=== PATIENT | female | born 1995 | race Caucasian/White ===

== ENCOUNTER 2016-10-08 04:50 | Emergency (ER) | payer MEDICAID, OTHER ==
[~2016-10-08] VITALS: Ht 167.6 cm; Wt 40.8 kg
[2016-10-08] MEDS ORDERED: FAMOTIDINE 20 MG/2 ML ONE (05:28)
[2016-10-08] MEDS ORDERED: ONDANSETRON 2MG/ML, 2ML ONE (05:28)
[2016-10-08] MEDS ORDERED: SODIUM CHLORIDE FLUSH 10ML SYR IVF ONE (05:30)
[2016-10-08] MEDS ORDERED: FAMOTIDINE 20 MG/2 ML IVP ONE (05:30)
[2016-10-08] MEDS ORDERED: SODIUM CHLORIDE 0.9% 1,000ML IVBOLUS ONE ×2 (05:30→08:30)
[2016-10-08] MEDS ORDERED: ONDANSETRON 2MG/ML, 2ML IVPush ONE (05:30)
[2016-10-08 06:06] LABS: ASPARTATE AMINO TRANSFERASE 246 U/L (15-37); BLOOD UREA NITROGEN 6 mg/dL (7-18)
[2016-10-08] MEDS ORDERED: KETOROLAC 30 MG/1 ML ONE (08:16)
[2016-10-08] MEDS ORDERED: MORPHINE SULFATE 4 MG/ML, 1ML ONE (08:27)
[2016-10-08] MEDS ORDERED: THIAMINE 200 MG in SODIUM CHLORIDE 0.9% 50 ML IV ONE (08:30)
[2016-10-08] MEDS ORDERED: FOLIC ACID 1 MG in DEXTROSE 5% 50 ML IV SCH (08:30)
[2016-10-08] MEDS ORDERED: KETOROLAC 30 MG/1 ML IVPush ONE (08:30)
[2016-10-08] MEDS ORDERED: MORPHINE SULFATE 4 MG/ML, 1ML IVPush ONE (09:00)
[2016-10-08] MEDS ORDERED: morphine SULFATE 10 MG/ML, 1ML IVPush ONE (09:00)
[2016-10-08 09:30] VITALS: BP 99/54
== END 2016-10-08 10:37 | disposition home or self-care (01) ==
LOC: ED 05:13
DX: K29.20 Alcoholic gastritis without bleeding (principal); E86.0 Dehydration; R11.2 Nausea with vomiting, unspecified; R10.84 Generalized abdominal pain
CPT/HCPCS: 36415; 76700; 80053; 81001; 83690; 84703; 85025; 87086; 96361; 96365; 96375; 99285; J1885; J2270; J2405; J3411; J7030; S0028

== ENCOUNTER 2016-10-19 17:54 | Emergency (ER) | payer MEDICAID ==
[~2016-10-19] VITALS: Ht 167.6 cm; Wt 45.8 kg
[2016-10-19] MEDS ORDERED: SODIUM CHLORIDE 0.9% 1,000 ML IV ONE (18:12)
[2016-10-19] MEDS ORDERED: HYDROmorphone 1 MG/ML, 1ML ONE (18:14)
[2016-10-19] MEDS ORDERED: ONDANSETRON 2MG/ML, 2ML ONE (18:14)
[2016-10-19] MEDS ORDERED: SODIUM CHLORIDE 0.9% 1,000ML IVBOLUS ONE (18:30)
[2016-10-19] MEDS ORDERED: HYDROmorphone 1 MG/ML, 1ML IVPush PRN (18:30)
[2016-10-19] MEDS ORDERED: ONDANSETRON 2MG/ML, 2ML IVPush ONE (18:30)
[2016-10-19] MEDS ORDERED: SODIUM CHLORIDE FLUSH 10ML SYR IVF ONE (18:30)
[2016-10-19 18:55] LABS: ASPARTATE AMINO TRANSFERASE 286 U/L (15-37); BLOOD UREA NITROGEN 8 mg/dL (7-18)
[2016-10-19 21:10] VITALS: BP 119/74
== END 2016-10-19 21:08 | disposition home or self-care (01) ==
LOC: ED 21:02
DX: K70.0 Alcoholic fatty liver (principal); R74.8 Abnormal levels of other serum enzymes; R11.2 Nausea with vomiting, unspecified; Z88.8 Allergy status to other drugs, medicaments and biological substances
CPT/HCPCS: 36415; 76700; 80053; 81001; 83690; 84703; 85025; 87081; 87086; 87880; 96361; 96374; 96375; 99285; J1170; J2405; J7030

== ENCOUNTER 2016-12-19 16:56 | Inpatient (IN) | payer MEDICAID ==
[~2016-12-19] VITALS: Ht 167.6 cm; Wt 45.8 kg
[2016-12-19] MEDS ORDERED: SODIUM CHLORIDE 0.9% 1,000ML IVBOLUS ONE ×2 (17:30→19:00)
[2016-12-19] MEDS ORDERED: SODIUM CHLORIDE FLUSH 10ML SYR IVF ONE (17:30)
[2016-12-19] MEDS ORDERED: ONDANSETRON 2MG/ML, 2ML IVPush ONE (17:30)
[2016-12-19] MEDS ORDERED: ONDANSETRON 2MG/ML, 2ML ONE ×2 (17:40→17:48)
[2016-12-19 18:09] LABS: BLOOD UREA NITROGEN 8 mg/dL (7-18)
[2016-12-19 18:14] LABS: ASPARTATE AMINO TRANSFERASE 342 U/L (15-37)
[2016-12-19] MEDS ORDERED: METOCLOPRAMIDE 5 MG/ML, 2ML ONE (18:38)
[2016-12-19] MEDS ORDERED: METOCLOPRAMIDE 5 MG/ML, 2ML IVPush ONE (19:00)
[2016-12-19 20:20] LABS: BLOOD UREA NITROGEN 6 mg/dL (7-18)
[2016-12-19] MEDS ORDERED: MAGNESIUM SULFATE 1 GM, THIAMINE 100 MG, FOLIC ACID 1 MG, MVI ADULT 10 ML in SODIUM CHL... IV ONE (20:30)
[2016-12-19] MEDS ORDERED: DEXTROSE 50%, 50ML VIAL ONE (20:43)
[2016-12-19] MEDS ORDERED: [UNRECOGNIZED DRUG - OTHER] IV ONE (20:50)
[2016-12-19] MEDS ORDERED: MAGNESIUM SULFATE IV ONE (20:50)
[2016-12-19] MEDS ORDERED: THIAMINE IV ONE (20:50)
[2016-12-19] MEDS ORDERED: FOLIC ACID IV ONE (20:50)
[2016-12-19] MEDS ORDERED: MVI ADULT IV ONE (20:50)
[2016-12-19] MEDS ORDERED: THIAMINE 100 MG, MVI ADULT 10 ML, FOLIC ACID 1 MG in D5%-0.9% NACL 1,000 ML IV SCH (21:00)
[2016-12-19] MEDS: PANTOPRAZOLE 40 MG IV IVPush SCH (21:00)
[2016-12-19] MEDS ORDERED: ACETAMINOPHEN 325 MG TABLET PO PRN (21:00)
[2016-12-19] MEDS ORDERED: ALUMINUM/MAG/SIMETHICONE 30 ML UDC PO PRN (21:00)
[2016-12-19] MEDS ORDERED: ONDANSETRON 2MG/ML, 2ML IV PRN (21:00)
[2016-12-19] MEDS ORDERED: DOCUSATE 100 MG CAPSULE PO PRN (21:00)
[2016-12-19] MEDS ORDERED: DIPHENHYDRAMINE 50 MG CAPSULE PO PRN (21:00)
[2016-12-19] MEDS ORDERED: BISACODYL 10 MG SUPP PR PRN (21:00)
[2016-12-19] MEDS ORDERED: SODIUM CHLORIDE FLUSH 10ML SYR IVF PRN (21:30)
[2016-12-19 21:38] LABS: DAU SCREEN DISCLAIMER
[2016-12-19] MEDS: ENOXAPARIN 40 MG/0.4 ML SQ SCH (23:44)
[2016-12-20 00:45] VITALS: BP 107/70
[2016-12-20] MEDS: CALCIUM CARBONATE 500 MG TAB.CHEW PO SCH ×5 (02:21→20:41)
[2016-12-20 05:38] LABS: ASPARTATE AMINO TRANSFERASE 282 U/L (15-37); BLOOD UREA NITROGEN 6 mg/dL (7-18)
[2016-12-20 06:05] LABS: DIFF TOTAL CELLS COUNTED 100 CELL DIFF
[2016-12-20 06:07] LABS: ANISOCYTOSIS 1+; VERIFY COUNTS? YES
[2016-12-20 06:44] VITALS: BP 108/73
[2016-12-20 08:45] LABS: TOTAL IRON BINDING CAPACITY 296 mcg/dL (250-450)
[2016-12-20] MEDS: POTASSIUM CHLORIDE 20 MEQ TAB.ER.PRT PO SCH ×2 (10:10→16:54)
[2016-12-20 13:03] VITALS: BP 104/63
[2016-12-20 20:00] VITALS: BP 116/78
[2016-12-20] MEDS: ENOXAPARIN 40 MG/0.4 ML SQ SCH (20:42)
[2016-12-21 04:36] VITALS: BP 124/89
[2016-12-21] MEDS: CALCIUM CARBONATE 500 MG TAB.CHEW PO SCH ×2 (05:21→11:53)
[2016-12-21 06:27] LABS: ASPARTATE AMINO TRANSFERASE 239 U/L (15-37); BLOOD UREA NITROGEN 2 mg/dL (7-18)
[2016-12-21 07:20] VITALS: BP 116/77
[2016-12-21] MEDS ORDERED: MAGNESIUM SULFATE PMX 4GM/100M 100 ML IV ONE (08:00)
[2016-12-21] MEDS ORDERED: MULTIVITAMIN 1 TABLET PO SCH (09:00)
[2016-12-21] MEDS: POTASSIUM CHLORIDE 20 MEQ TAB.ER.PRT PO SCH (09:14)
[2016-12-21] MEDS: PANTOPRAZOLE 40 MG IV IVPush SCH (09:58)
== END 2016-12-21 14:20 | disposition home or self-care (01) | DRG 896 ==
LOC: ED 20:53 → EDIP 20:54 → ED 21:14 → 4NOR 22:24 → DCLOUNGE 12-21 13:20
PROVIDERS: ADMIT Internal Medicine; ATTEND Internal Medicine
DX: F10.239 Alcohol dependence with withdrawal, unspecified (principal); E43 Unspecified severe protein-calorie malnutrition; E87.2 Acidosis; Z68.1 Body mass index [BMI] 19.9 or less, adult; D69.6 Thrombocytopenia, unspecified; K70.10 Alcoholic hepatitis without ascites; E86.0 Dehydration; E83.51 Hypocalcemia; E16.2 Hypoglycemia, unspecified; R82.71 Bacteriuria; E87.6 Hypokalemia; F17.200 Nicotine dependence, unspecified, uncomplicated; Z88.8 Allergy status to other drugs, medicaments and biological substances; Z82.5 Family history of asthma and other chronic lower respiratory diseases; Z82.49 Family history of ischemic heart disease and other diseases of the circulatory system
CPT/HCPCS: 36415; 80048; 80053; 80307; 81001; 82010; 82040; 82607; 82746; 83540; 83550; 83605; 83690; 83735; 84100; 84703; 85025; 85610; 87086; 93005; 96361; 96374; 96375; J1650; J2405; J3411; J3475; J7042; J7070; C9113; J2765; J7030

== ENCOUNTER 2017-02-04 01:19 | Emergency (ER) | payer MEDICAID ==
[~2017-02-04] VITALS: Ht 167.6 cm; Wt 42.7 kg
[2017-02-04 01:21] VITALS: BP 112/78
[2017-02-04 02:16] LABS: HCG UR OBC PASS
== END 2017-02-04 03:06 | disposition home or self-care (01) ==
LOC: ED 02:00
DX: N30.90 Cystitis, unspecified without hematuria (principal); Z88.8 Allergy status to other drugs, medicaments and biological substances
CPT/HCPCS: 81001; 81025; 87077; 87086; 87186; 99284

== ENCOUNTER 2017-02-04 19:47 | Emergency (ER) | payer MEDICAID ==
[~2017-02-04] VITALS: Ht 167.6 cm; Wt 42.7 kg
[2017-02-04 20:40] LABS: ASPARTATE AMINO TRANSFERASE 321 U/L (15-37); BLOOD UREA NITROGEN 7 mg/dL (7-18)
[2017-02-04 21:24] LABS: DIFF TOTAL CELLS COUNTED 100 CELL DIFF; HEMATOCRIT 29.5 % (34.6-47.8); HEMOGLOBIN 9.4 g/dL (11.7-16.4); WHITE BLOOD COUNT 4.1 x10^3/uL (3.4-10)
[2017-02-04 21:27] LABS: VERIFY COUNTS? YES
[2017-02-04 21:28] LABS: TARGET CELLS 1+
[2017-02-04] MEDS ORDERED: POTASSIUM CHLORIDE 20 MEQ TAB.ER.PRT PO ONE (22:00)
[2017-02-04] MEDS ORDERED: POTASSIUM CHLORIDE 20 MEQ TAB.ER.PRT ONE (22:11)
[2017-02-04 22:18] VITALS: BP 107/73
[2017-02-04] MEDS ORDERED: CEFTRIAXONE 1,000 MG ONE (22:39)
[2017-02-04] MEDS ORDERED: CEFTRIAXONE 1,000 MG IM ONE (23:00)
== END 2017-02-04 23:12 | disposition home or self-care (01) ==
LOC: ED 20:24
DX: N30.01 Acute cystitis with hematuria (principal); K70.0 Alcoholic fatty liver; D64.89 Other specified anemias; E87.6 Hypokalemia
CPT/HCPCS: 36415; 76700; 80048; 80076; 81001; 84703; 85025; 87077; 87086; 87186; 96372; 99285; J0696

== ENCOUNTER 2017-02-05 11:39 | Emergency (ER) | payer MEDICAID ==
[~2017-02-05] VITALS: Ht 167.6 cm; Wt 42.3 kg
[2017-02-05 13:00] LABS: BLOOD UREA NITROGEN 9 mg/dL (7-18)
[2017-02-05 13:05] LABS: HEMATOCRIT 30.3 % (34.6-47.8); HEMOGLOBIN 9.8 g/dL (11.7-16.4); WHITE BLOOD COUNT 4.5 x10^3/uL (3.4-10)
[2017-02-05] MEDS ORDERED: MAALOX/HYOSCYAMINE/LIDOCAINE 45 ML BTL PO ONE (14:00)
[2017-02-05] MEDS ORDERED: ONDANSETRON ODT 4 MG PO ONE (14:00)
[2017-02-05] MEDS ORDERED: MAALOX/HYOSCYAMINE/LIDOCAINE 45 ML BTL ONE (14:05)
[2017-02-05] MEDS ORDERED: ONDANSETRON ODT 4 MG ONE (14:05)
[2017-02-05] MEDS ORDERED: PROMETHAZINE 25 MG/ML, 1ML ONE (15:30)
[2017-02-05] MEDS ORDERED: PROMETHAZINE 25 MG/ML, 1ML IM ONE (16:00)
[2017-02-05] MEDS ORDERED: MORPHINE SULFATE 4 MG/ML, 1ML ONE (16:08)
[2017-02-05] MEDS ORDERED: ONDANSETRON 2MG/ML, 2ML ONE (16:08)
[2017-02-05] MEDS ORDERED: SODIUM CHLORIDE 0.9% 1,000ML IVBOLUS ONE (16:30)
[2017-02-05] MEDS ORDERED: MORPHINE SULFATE 4 MG/ML, 1ML IVPush PRN (16:30)
[2017-02-05] MEDS ORDERED: SODIUM CHLORIDE FLUSH 10ML SYR IVF ONE (16:30)
[2017-02-05 17:46] VITALS: BP 105/61
== END 2017-02-05 17:50 | disposition home or self-care (01) ==
LOC: ED 13:28
DX: N30.01 Acute cystitis with hematuria (principal); R10.13 Epigastric pain; R11.2 Nausea with vomiting, unspecified
CPT/HCPCS: 36415; 80048; 80076; 81001; 82040; 83690; 85025; 87086; 96361; 96372; 96374; 99284; J2550; J7030; Q0162

== ENCOUNTER 2017-02-21 20:13 | Inpatient (IN) | payer MEDICAID ==
[~2017-02-21] VITALS: Ht 167.6 cm; Wt 52.6 kg
[2017-02-21] MEDS ORDERED: SODIUM CHLORIDE FLUSH 10ML SYR IVF ONE (20:30)
[2017-02-21 20:51] LABS: HEMATOCRIT 29.9 % (34.6-47.8); HEMOGLOBIN 9.7 g/dL (11.7-16.4); WHITE BLOOD COUNT 7.8 x10^3/uL (3.4-10)
[2017-02-21 21:06] LABS: ASPARTATE AMINO TRANSFERASE 276 U/L (15-37)
[2017-02-21 21:09] LABS: BLOOD UREA NITROGEN 11 mg/dL (7-18)
[2017-02-21] MEDS ORDERED: MAGNESIUM SULFATE 1 GM, THIAMINE 100 MG, FOLIC ACID 1 MG, MVI ADULT 10 ML in SODIUM CHL... IV ONE (21:30)
[2017-02-21] MEDS ORDERED: SODIUM CHLORIDE 0.9% 1,000ML IVBOLUS ONE (21:30)
[2017-02-22] VITALS (11 sets, daily range): BP systolic 80–117; BP diastolic 63–83
[2017-02-22] MEDS ORDERED: ENALAPRILAT 1.25 MG/ML, 2ML IVPush PRN (01:00)
[2017-02-22] MEDS ORDERED: HEPARIN 5,000 UNITS/ML, 1ML SQ SCH (01:00)
[2017-02-22] MEDS ORDERED: ONDANSETRON 2MG/ML, 2ML IVPush PRN (01:00)
[2017-02-22] MEDS ORDERED: SODIUM CHLORIDE 0.9% 1,000 ML IV SCH (09:00)
[2017-02-22] MEDS: NICOTINE 14MG/24 HR PATCH.TD24 TD SCH (09:00)
[2017-02-22] MEDS ORDERED: POTASSIUM CHLORIDE 20 MEQ, MAGNESIUM SULFATE 1 GM, THIAMINE 100 MG, FOLIC ACID 1 MG, MV... IV SCH (09:00)
[2017-02-22] MEDS ORDERED: LIDOCAINE 1%, 20ML ONE ×2 (09:18→15:34)
[2017-02-22] MEDS: morphine SULFATE 10 MG/ML, 1ML IVPush PRN ×4 (09:55→22:36)
[2017-02-22] MEDS: POTASSIUM CHLORIDE 40 MEQ in SODIUM CHLORIDE 0.9% 500 ML IV ONE ×2 (09:56→11:59)
[2017-02-22] MEDS: CEFTRIAXONE PMX 1GM/50ML 50 ML IV SCH (10:09)
[2017-02-22] MEDS: SODIUM CHLORIDE 0.9% 1,000 ML IV SCH ×2 (10:10→21:56)
[2017-02-22 10:55] LABS: HEMOGLOBIN 7.2 g/dL (11.7-16.4)
[2017-02-22 17:09] LABS: ASPARTATE AMINO TRANSFERASE 255 U/L (15-37); BLOOD UREA NITROGEN 8 mg/dL (7-18)
[2017-02-22] MEDS ORDERED: PROMETHAZINE 25 MG SUPP PR PRN (19:30)
[2017-02-23] MEDS: morphine SULFATE 10 MG/ML, 1ML IVPush PRN (03:13)
[2017-02-23 03:42] VITALS: BP 112/77
[2017-02-23 05:05] LABS: HEMATOCRIT 31.8 % (34.6-47.8); HEMOGLOBIN 10.8 g/dL (11.7-16.4); WHITE BLOOD COUNT 5.1 x10^3/uL (3.4-10)
[2017-02-23 05:23] LABS: ASPARTATE AMINO TRANSFERASE 250 U/L (15-37); BLOOD UREA NITROGEN 7 mg/dL (7-18); TOTAL IRON BINDING CAPACITY 221 mcg/dL (250-450)
[2017-02-23 07:44] VITALS: BP 118/73
[2017-02-23] MEDS ORDERED: morphine SULFATE 10 MG/ML, 1ML IVPush PRN (08:30)
[2017-02-23] MEDS: NICOTINE 14MG/24 HR PATCH.TD24 TD SCH (08:39)
[2017-02-23] MEDS: CEFTRIAXONE PMX 1GM/50ML 50 ML IV SCH (10:59)
[2017-02-23] MEDS ORDERED: SODIUM CHLORIDE 0.9% 1,000 ML IV SCH (11:00)
[2017-02-23] MEDS: SODIUM CHLORIDE 0.9% 1,000 ML IV SCH (12:09)
[2017-02-23] MEDS: MORPHINE SULFATE 4 MG/ML, 1ML IVPush PRN ×3 (12:22→21:06)
[2017-02-23 15:05] VITALS: BP 113/78
[2017-02-23 20:31] VITALS: BP 114/80
[2017-02-24] MEDS: MORPHINE SULFATE 4 MG/ML, 1ML IVPush PRN ×6 (01:46→23:42)
[2017-02-24] MEDS: SODIUM CHLORIDE 0.9% 1,000 ML IV SCH ×2 (01:46→11:21)
[2017-02-24 02:55] VITALS: BP 115/76
[2017-02-24 06:03] LABS: HEMOGLOBIN 10.4 g/dL (11.7-16.4); WHITE BLOOD COUNT 3.9 x10^3/uL (3.4-10)
[2017-02-24 06:12] LABS: ASPARTATE AMINO TRANSFERASE 241 U/L (15-37); BLOOD UREA NITROGEN 6 mg/dL (7-18)
[2017-02-24 06:44] VITALS: BP 103/65
[2017-02-24] MEDS: NICOTINE 14MG/24 HR PATCH.TD24 TD SCH (08:15)
[2017-02-24] MEDS: prednisOLONE 15 MG/5 ML ORAL SOLN PO SCH (08:15)
[2017-02-24] MEDS: CEFTRIAXONE PMX 1GM/50ML 50 ML IV SCH (11:21)
[2017-02-24 12:50] VITALS: BP 119/83
[2017-02-24] MEDS ORDERED: POTASSIUM PHOSPHATE 44 MEQ in SODIUM CHLORIDE 0.9% 500 ML IV ONE (16:00)
[2017-02-24] MEDS ORDERED: MAGNESIUM SULFATE PMX 4GM/100M 100 ML IV ONE ×3 (16:00→20:00)
[2017-02-24] MEDS ORDERED: POLYETHYLENE GLYCOL 17 GM PACKET PO PRN (16:00)
[2017-02-24 20:34] VITALS: BP 111/74
[2017-02-25 02:01] VITALS: BP 110/74
[2017-02-25] MEDS: MORPHINE SULFATE 4 MG/ML, 1ML IVPush PRN ×2 (03:18→06:17)
[2017-02-25 06:07] LABS: ASPARTATE AMINO TRANSFERASE 226 U/L (15-37)
[2017-02-25 06:10] LABS: BLOOD UREA NITROGEN 5 mg/dL (7-18)
[2017-02-25] MEDS: SODIUM CHLORIDE 0.9% 1,000 ML IV SCH ×2 (06:17→16:13)
[2017-02-25 07:12] VITALS: BP 113/76
[2017-02-25] MEDS: prednisOLONE 15 MG/5 ML ORAL SOLN PO SCH (07:42)
[2017-02-25] MEDS: NICOTINE 14MG/24 HR PATCH.TD24 TD SCH (07:45)
[2017-02-25] MEDS: OXYcodone IR 5MG TABLET PO PRN ×3 (11:32→21:31)
[2017-02-25] MEDS: CEFTRIAXONE PMX 1GM/50ML 50 ML IV SCH (11:34)
[2017-02-25 13:39] VITALS: BP 119/85
[2017-02-25 20:53] VITALS: BP 115/80
[2017-02-26 01:23] VITALS: BP 117/77
[2017-02-26] MEDS: SODIUM CHLORIDE 0.9% 1,000 ML IV SCH ×2 (01:30→11:30)
[2017-02-26 05:30] LABS: ASPARTATE AMINO TRANSFERASE 243 U/L (15-37); BLOOD UREA NITROGEN 4 mg/dL (7-18)
[2017-02-26 07:05] VITALS: BP 109/73
[2017-02-26] MEDS: NICOTINE 14MG/24 HR PATCH.TD24 TD SCH (09:00)
[2017-02-26] MEDS: OXYcodone IR 5MG TABLET PO PRN (09:29)
[2017-02-26] MEDS: prednisOLONE 15 MG/5 ML ORAL SOLN PO SCH (09:29)
[2017-02-26] MEDS: CEFTRIAXONE PMX 1GM/50ML 50 ML IV SCH (10:34)
[2017-02-26] MEDS ORDERED: NICO1PAT13 TD (12:42)
[2017-02-26] MEDS ORDERED: CEFD300C37 PO (12:42)
[2017-02-26] MEDS ORDERED: PRED15SO3 PO (12:42)
[2017-02-26] MEDS ORDERED: ONDA4TAB13 SL (12:42)
[2017-02-26] MEDS ORDERED: TRAM50TA2 PO (12:42)
== END 2017-02-26 13:20 | disposition home or self-care (01) | DRG 441 ==
LOC: ED 21:45 → EDIP 22:31 → 3NE 02-22
PROVIDERS: ADMIT Internal Medicine; ATTEND Internal Medicine
PROC: 30233N1 Transfusion of Nonautologous Red Blood Cells into Peripheral Vein, Percutaneous Approach (ICD-10-PCS; principal; 2017-02-22)
PROC: 0W9G3ZX Drainage of Peritoneal Cavity, Percutaneous Approach, Diagnostic (ICD-10-PCS; 2017-02-22)
DX: K72.00 Acute and subacute hepatic failure without coma (principal); E43 Unspecified severe protein-calorie malnutrition; N17.0 Acute kidney failure with tubular necrosis; K76.7 Hepatorenal syndrome; I81 Portal vein thrombosis; D68.9 Coagulation defect, unspecified; E83.41 Hypermagnesemia; K70.11 Alcoholic hepatitis with ascites; K86.2 Cyst of pancreas; N39.0 Urinary tract infection, site not specified; Z68.1 Body mass index [BMI] 19.9 or less, adult; D63.8 Anemia in other chronic diseases classified elsewhere; K70.31 Alcoholic cirrhosis of liver with ascites; E83.39 Other disorders of phosphorus metabolism; E78.5 Hyperlipidemia, unspecified; E87.6 Hypokalemia; F10.20 Alcohol dependence, uncomplicated; K76.0 Fatty (change of) liver, not elsewhere classified; Y90.8 Blood alcohol level of 240 mg/100 ml or more; Z88.8 Allergy status to other drugs, medicaments and biological substances
CPT/HCPCS: 36415; 49083; 76700; 80053; 80307; 81001; 82042; 82140; 83010; 83540; 83550; 83615; 83690; 83735; 84100; 84703; 85018; 85025; 85045; 85610; 86704; 86706; 86708; 86803; 86850; 86900; 86923; 87040; 87070; 87086; 87205; 87340; 89051; 99285; J0696; J2405; J3411; J3475; J3480; J3490; J2270; J7030; J7040; J7510; P9016

== ENCOUNTER 2017-02-27 12:28 | Emergency (ER) | payer MEDICAID ==
[~2017-02-27] VITALS: Ht 167.6 cm; Wt 53.0 kg
[~2017-02-27 12:28] MED LIST: CEFD300C37 PO; NICO1PAT13 TD; ONDA4TAB13 SL; PRED15SO3 PO; TRAM50TA2 PO
[2017-02-27 13:24] VITALS: BP 115/76
[2017-02-27 14:10] LABS: ASPARTATE AMINO TRANSFERASE 228 U/L (15-37); BLOOD UREA NITROGEN 4 mg/dL (7-18)
[2017-02-27 14:13] LABS: DIFF TOTAL CELLS COUNTED 100 CELL DIFF; HEMATOCRIT 34.5 % (34.6-47.8); HEMOGLOBIN 11.4 g/dL (11.7-16.4); WHITE BLOOD COUNT 6.2 x10^3/uL (3.4-10)
[2017-02-27 14:55] LABS: ANISOCYTOSIS 1+; HYPOCHROMIA 1+; TARGET CELLS 1+; VERIFY COUNTS? YES
== END 2017-02-27 15:35 | disposition home or self-care (01) ==
LOC: ED 13:50
DX: K70.30 Alcoholic cirrhosis of liver without ascites (principal)
CPT/HCPCS: 36415; 74020; 80053; 80307; 83690; 85025; 99285; G0479

== ENCOUNTER 2017-04-28 02:03 | Emergency (ER) | payer MEDICAID ==
[~2017-04-28] VITALS: Ht 167.6 cm; Wt 47.2 kg
[~2017-04-28 02:03] MED LIST changes: +NICO-486 TD; -NICO1PAT13 TD
[2017-04-28] MEDS ORDERED: SODIUM CHLORIDE 0.9% 1,000 ML IV ONE (02:13)
[2017-04-28] MEDS ORDERED: SODIUM CHLORIDE FLUSH 10ML SYR IVF ONE (02:30)
[2017-04-28] MEDS ORDERED: LORazepam 2 MG/ML, 1ML IVPush ONE (02:30)
[2017-04-28] MEDS ORDERED: ONDANSETRON 2MG/ML, 2ML IVPush ONE (02:30)
[2017-04-28] MEDS ORDERED: THIAMINE 100MG TABLET PO ONE (02:30)
[2017-04-28] MEDS ORDERED: PROMETHAZINE 25 MG/ML, 1ML IM ONE (02:30)
[2017-04-28] MEDS ORDERED: SODIUM CHLORIDE 0.9% 1,000ML IVBOLUS ONE (02:30)
[2017-04-28] MEDS ORDERED: THIAMINE 100MG TABLET ONE (02:36)
[2017-04-28] MEDS ORDERED: PROMETHAZINE 25 MG/ML, 1ML ONE (02:36)
[2017-04-28] MEDS ORDERED: ONDANSETRON 2MG/ML, 2ML ONE (02:36)
[2017-04-28 02:41] LABS: HEMATOCRIT 36.2 % (34.6-47.8); HEMOGLOBIN 12.1 g/dL (11.7-16.4); WHITE BLOOD COUNT 8.6 x10^3/uL (3.4-10)
[2017-04-28] MEDS ORDERED: morphine SULFATE 10 MG/ML, 1ML ONE (02:43)
[2017-04-28 02:50] LABS: ASPARTATE AMINO TRANSFERASE 295 U/L (15-37); BLOOD UREA NITROGEN 7 mg/dL (7-18)
[2017-04-28] MEDS ORDERED: MORPHINE SULFATE 4 MG/ML, 1ML IVPush ONE (03:00)
[2017-04-28 03:09] LABS: DIFF TOTAL CELLS COUNTED 100 CELL DIFF
[2017-04-28] MEDS ORDERED: POTASSIUM CHLORIDE 20 MEQ TAB.ER.PRT ONE (03:09)
[2017-04-28 03:13] LABS: ANISOCYTOSIS 1+; VERIFY COUNTS? YES
[2017-04-28 03:18] LABS: POLYCHROMASIA 1+; TARGET CELLS 1+
[2017-04-28] MEDS ORDERED: POTASSIUM CHLORIDE 20 MEQ TAB.ER.PRT PO ONE (03:30)
[2017-04-28 03:37] VITALS: BP 122/77
== END 2017-04-28 03:29 | disposition home or self-care (01) ==
LOC: ED 02:16
DX: K70.31 Alcoholic cirrhosis of liver with ascites (principal); F17.200 Nicotine dependence, unspecified, uncomplicated; N19 Unspecified kidney failure
CPT/HCPCS: 36415; 80053; 80307; 83690; 84703; 85025; 96361; 96372; 96374; 99285; J2405; J2550; J7030; G0479

== ENCOUNTER 2017-05-02 18:53 | Emergency (ER) | payer MEDICAID ==
[~2017-05-02] VITALS: Ht 167.6 cm; Wt 49.6 kg
[2017-05-02] MEDS ORDERED: SODIUM CHLORIDE 0.9% 1,000ML IVBOLUS ONE (19:30)
[2017-05-02 19:32] LABS: HEMATOCRIT 34.5 % (34.6-47.8); HEMOGLOBIN 11.4 g/dL (11.7-16.4); WHITE BLOOD COUNT 17.4 x10^3/uL (3.4-10)
[2017-05-02 19:35] LABS: ASPARTATE AMINO TRANSFERASE 206 U/L (15-37); BLOOD UREA NITROGEN 7 mg/dL (7-18)
[2017-05-02 20:18] LABS: DIFF TOTAL CELLS COUNTED 100 CELL DIFF
[2017-05-02 20:20] LABS: VERIFY COUNTS? YES
[2017-05-02 20:22] LABS: ANISOCYTOSIS 1+; HYPOCHROMIA 1+
[2017-05-02 20:26] LABS: TARGET CELLS 1+
[2017-05-02] MEDS ORDERED: ONDANSETRON 2MG/ML, 2ML IVPush ONE (20:30)
[2017-05-02] MEDS ORDERED: SODIUM CHLORIDE FLUSH 10ML SYR IVF ONE (20:30)
[2017-05-02] MEDS ORDERED: FAMOTIDINE 20 MG/2 ML IVP ONE (20:30)
[2017-05-02] MEDS ORDERED: FAMOTIDINE 20 MG/2 ML ONE (20:46)
[2017-05-02] MEDS ORDERED: ONDANSETRON 2MG/ML, 2ML ONE (20:46)
[2017-05-02] MEDS ORDERED: KETOROLAC 30 MG/1 ML ONE (20:54)
[2017-05-02] MEDS ORDERED: KETOROLAC 30 MG/1 ML IVPush ONE ×2 (21:00→21:30)
[2017-05-02 22:14] VITALS: BP 106/59
== END 2017-05-02 22:18 | disposition home or self-care (01) ==
LOC: ED 21:21
DX: K70.30 Alcoholic cirrhosis of liver without ascites (principal)
CPT/HCPCS: 36415; 76700; 80053; 83690; 84703; 85025; 96361; 96374; 96375; 99285; J1885; J2405; J7030; S0028

== ENCOUNTER 2017-05-06 14:38 | Inpatient (IN) | payer MEDICAID ==
[~2017-05-06] VITALS: Ht 167.6 cm; Wt 52.6 kg
[2017-05-06] MEDS ORDERED: HYDROmorphone 1 MG/ML, 1ML ONE ×2 (15:18→16:57)
[2017-05-06] MEDS ORDERED: ONDANSETRON 2MG/ML, 2ML ONE (15:18)
[2017-05-06] MEDS ORDERED: L.E.T SOLUTION TP ONE (15:30)
[2017-05-06] MEDS ORDERED: ONDANSETRON 2MG/ML, 2ML IVPush ONE (15:30)
[2017-05-06] MEDS ORDERED: SODIUM CHLORIDE 0.9% 1,000ML IVBOLUS ONE (15:30)
[2017-05-06] MEDS ORDERED: SODIUM CHLORIDE FLUSH 10ML SYR IVF ONE (15:30)
[2017-05-06] MEDS: HYDROmorphone 1 MG/ML, 1ML IVPush PRN ×2 (15:34→17:08)
[2017-05-06 15:52] LABS: BLOOD UREA NITROGEN 13 mg/dL (7-18)
[2017-05-06 16:01] LABS: ASPARTATE AMINO TRANSFERASE 191 U/L (15-37)
[2017-05-06 16:08] LABS: HEMATOCRIT 30.5 % (34.6-47.8); HEMOGLOBIN 10.4 g/dL (11.7-16.4); WHITE BLOOD COUNT 11.3 x10^3/uL (3.4-10)
[2017-05-06] MEDS ORDERED: OMNIPAQUE 350 MG/ML, 100ML BOTTLE ONE (16:45)
[2017-05-06] MEDS ORDERED: POLYETHYLENE GLYCOL 17 GM PACKET PO PRN (18:00)
[2017-05-06] MEDS: NICOTINE 7 MG/24 HR PATCH.TD24 TD SCH (18:00)
[2017-05-06] MEDS ORDERED: BISACODYL 10 MG SUPP PR PRN (18:00)
[2017-05-06 19:21] VITALS: BP 117/76
[2017-05-06] MEDS: NS + 40MEQ KCL 1,000 ML IV SCH (19:46)
[2017-05-06] MEDS: HYDROmorphone 1 MG/ML, 1ML IV PRN (19:46)
[2017-05-06] MEDS: ONDANSETRON 2MG/ML, 2ML IVPush PRN (19:46)
[2017-05-07] VITALS (10 sets, daily range): BP systolic 113–123; BP diastolic 75–80
[2017-05-07] MEDS: HYDROmorphone 1 MG/ML, 1ML IV PRN ×6 (00:27→22:07)
[2017-05-07] MEDS: ONDANSETRON 2MG/ML, 2ML IVPush PRN ×3 (05:04→20:26)
[2017-05-07 05:30] LABS: HEMATOCRIT 26.3 % (34.6-47.8); HEMOGLOBIN 8.9 g/dL (11.7-16.4); WHITE BLOOD COUNT 10.6 x10^3/uL (3.4-10)
[2017-05-07 05:45] LABS: ASPARTATE AMINO TRANSFERASE 156 U/L (15-37); BLOOD UREA NITROGEN 11 mg/dL (7-18)
[2017-05-07] MEDS: NS + 40MEQ KCL 1,000 ML IV SCH ×3 (05:54→17:55)
[2017-05-07] MEDS: prednisOLONE 15 MG/5 ML ORAL SOLN PO SCH (08:00)
[2017-05-07] MEDS ORDERED: PHYTONADIONE 10 MG in SODIUM CHLORIDE 0.9% 50 ML IV ONE (08:30)
[2017-05-07] MEDS: SENNA/DOCUSATE TABLET PO SCH (08:53)
[2017-05-07] MEDS ORDERED: LIDOCAINE 1%, 20ML ONE (11:09)
[2017-05-07] MEDS: NICOTINE 7 MG/24 HR PATCH.TD24 TD SCH (18:00)
[2017-05-07] MEDS: CIPROFLOXACIN/PMX 400MG/200ML 200 ML IV SCH (19:46)
[2017-05-07] MEDS: METRONIDAZOLE PMX 500MG/100ML 100 ML IV SCH (22:07)
[2017-05-08 01:48] VITALS: BP 118/73
[2017-05-08] MEDS: HYDROmorphone 1 MG/ML, 1ML IV PRN ×5 (02:21→20:09)
[2017-05-08 05:08] LABS: HEMATOCRIT 24.6 % (34.6-47.8); HEMOGLOBIN 8.5 g/dL (11.7-16.4)
[2017-05-08 05:18] LABS: BLOOD UREA NITROGEN 9 mg/dL (7-18)
[2017-05-08] MEDS: METRONIDAZOLE PMX 500MG/100ML 100 ML IV SCH ×3 (05:18→21:35)
[2017-05-08] MEDS: NS + 40MEQ KCL 1,000 ML IV SCH ×2 (07:35→17:42)
[2017-05-08] MEDS: prednisOLONE 15 MG/5 ML ORAL SOLN PO SCH ×2 (07:36→13:28)
[2017-05-08] MEDS: SENNA/DOCUSATE TABLET PO SCH (07:36)
[2017-05-08] MEDS: ONDANSETRON 2MG/ML, 2ML IVPush PRN ×2 (07:44→21:39)
[2017-05-08 08:18] VITALS: BP 108/66
[2017-05-08 15:55] VITALS: BP 121/73
[2017-05-08] MEDS: NICOTINE 7 MG/24 HR PATCH.TD24 TD SCH (17:42)
[2017-05-08 19:04] VITALS: BP 129/80
[2017-05-08] MEDS: CIPROFLOXACIN/PMX 400MG/200ML 200 ML IV SCH (20:11)
[2017-05-09] MEDS: HYDROmorphone 1 MG/ML, 1ML IV PRN ×6 (00:17→22:33)
[2017-05-09 04:31] VITALS: BP 119/77
[2017-05-09] MEDS: NS + 40MEQ KCL 1,000 ML IV SCH ×2 (04:40→15:30)
[2017-05-09] MEDS: METRONIDAZOLE PMX 500MG/100ML 100 ML IV SCH ×3 (05:24→21:48)
[2017-05-09 07:18] VITALS: BP 118/69
[2017-05-09] MEDS: SENNA/DOCUSATE TABLET PO SCH (08:11)
[2017-05-09] MEDS: prednisOLONE 15 MG/5 ML ORAL SOLN PO SCH (08:11)
[2017-05-09 09:55] LABS: BLOOD UREA NITROGEN 6 mg/dL (7-18)
[2017-05-09 09:58] LABS: ASPARTATE AMINO TRANSFERASE 121 U/L (15-37); LACTATE DEHYDROGENASE 174 U/L (84-246)
[2017-05-09 12:50] VITALS: BP 130/79
[2017-05-09] MEDS: NICOTINE 7 MG/24 HR PATCH.TD24 TD SCH (18:00)
[2017-05-09] MEDS: FUROSEMIDE 20 MG TABLET PO SCH (18:19)
[2017-05-09] MEDS: ALBUMIN HUMAN 25% 100 ML IV SCH (18:20)
[2017-05-09 19:37] VITALS: BP 108/71
[2017-05-09] MEDS: CIPROFLOXACIN/PMX 400MG/200ML 200 ML IV SCH (20:45)
[2017-05-10] VITALS (9 sets, daily range): BP systolic 106–125; BP diastolic 66–91
[2017-05-10] MEDS: ALBUMIN HUMAN 25% 100 ML IV SCH ×4 (00:06→19:07)
[2017-05-10] MEDS: HYDROmorphone 1 MG/ML, 1ML IV PRN ×6 (02:37→23:08)
[2017-05-10] MEDS: METRONIDAZOLE PMX 500MG/100ML 100 ML IV SCH ×3 (05:04→23:08)
[2017-05-10 06:11] LABS: WHITE BLOOD COUNT 10.2 x10^3/uL (3.4-10)
[2017-05-10 06:24] LABS: ASPARTATE AMINO TRANSFERASE 84 U/L (15-37); BLOOD UREA NITROGEN 4 mg/dL (7-18)
[2017-05-10 06:26] LABS: HEMATOCRIT 20.5 % (34.6-47.8)
[2017-05-10] MEDS ORDERED: FUROSEMIDE 20 MG/2 ML IV ONE (09:00)
[2017-05-10] MEDS: SENNA/DOCUSATE TABLET PO SCH (09:00)
[2017-05-10] MEDS: prednisOLONE 15 MG/5 ML ORAL SOLN PO SCH (09:17)
[2017-05-10] MEDS: FUROSEMIDE 20 MG TABLET PO SCH ×2 (09:17→09:44)
[2017-05-10] MEDS: CEFTRIAXONE PMX 1GM/50ML 50 ML IV SCH (09:58)
[2017-05-10 11:07] LABS: DILUTION 1
[2017-05-10 11:08] LABS: CELLS COUNTED 40; WBC SQUARES COUNTED 9
[2017-05-10] MEDS ORDERED: MAGNESIUM SULFATE PMX 2GM/50ML 50 ML IV ONE (16:30)
[2017-05-10] MEDS: NICOTINE 7 MG/24 HR PATCH.TD24 TD SCH (17:57)
[2017-05-10] MEDS: MAGNESIUM CHLORIDE 64 MG TABLET.DR PO SCH (20:14)
[2017-05-11] MEDS: HYDROmorphone 1 MG/ML, 1ML IV PRN ×5 (03:15→20:15)
[2017-05-11 03:31] VITALS: BP 112/62
[2017-05-11 05:37] LABS: HEMATOCRIT 29.4 % (34.6-47.8); HEMOGLOBIN 10.2 g/dL (11.7-16.4); WHITE BLOOD COUNT 7.8 x10^3/uL (3.4-10)
[2017-05-11 05:56] LABS: ASPARTATE AMINO TRANSFERASE 64 U/L (15-37); BLOOD UREA NITROGEN 2 mg/dL (7-18)
[2017-05-11 06:16] LABS: DIFF TOTAL CELLS COUNTED 100 CELL DIFF
[2017-05-11 06:18] LABS: ANISOCYTOSIS 1+; VERIFY COUNTS? YES
[2017-05-11 06:19] LABS: TARGET CELLS 1+
[2017-05-11 06:20] LABS: OVALOCYTES 1+
[2017-05-11 06:21] LABS: LARGE PLATELETS 1+
[2017-05-11 07:27] VITALS: BP 113/61
[2017-05-11] MEDS: prednisOLONE 15 MG/5 ML ORAL SOLN PO SCH (07:46)
[2017-05-11] MEDS: METRONIDAZOLE PMX 500MG/100ML 100 ML IV SCH ×3 (07:47→23:33)
[2017-05-11] MEDS: MAGNESIUM CHLORIDE 64 MG TABLET.DR PO SCH ×2 (07:47→21:08)
[2017-05-11] MEDS: FUROSEMIDE 20 MG TABLET PO SCH (07:48)
[2017-05-11] MEDS: SENNA/DOCUSATE TABLET PO SCH (07:48)
[2017-05-11] MEDS ORDERED: MAGNESIUM SULFATE PMX 2GM/50ML 50 ML IV ONE (10:00)
[2017-05-11] MEDS ORDERED: POTASSIUM CHLORIDE 40 MEQ in SODIUM CHLORIDE 0.9% 500 ML IV ONE (10:00)
[2017-05-11] MEDS: CEFTRIAXONE PMX 1GM/50ML 50 ML IV SCH (11:20)
[2017-05-11 13:25] VITALS: BP 114/71
[2017-05-11] MEDS: NICOTINE 7 MG/24 HR PATCH.TD24 TD SCH (18:00)
[2017-05-11 18:28] VITALS: BP 115/76
[2017-05-11 18:31] LABS: BLOOD UREA NITROGEN 2 mg/dL (7-18)
[2017-05-11] MEDS ORDERED: LIDOCAINE 1%, 20ML ONE (18:43)
[2017-05-11] MEDS: POTASSIUM CHLORIDE 20 MEQ TAB.ER.PRT PO SCH (21:08)
[2017-05-12] MEDS: HYDROmorphone 1 MG/ML, 1ML IV PRN ×6 (00:17→20:42)
[2017-05-12 02:21] VITALS: BP 111/75
[2017-05-12 05:44] LABS: BLOOD UREA NITROGEN 2 mg/dL (7-18)
[2017-05-12 05:46] LABS: HEMATOCRIT 32.2 % (34.6-47.8); WHITE BLOOD COUNT 9.9 x10^3/uL (3.4-10)
[2017-05-12 05:47] LABS: ASPARTATE AMINO TRANSFERASE 61 U/L (15-37)
[2017-05-12 07:25] VITALS: BP 113/60
[2017-05-12] MEDS ORDERED: MAGNESIUM SULFATE PMX 2GM/50ML 50 ML IV ONE (08:00)
[2017-05-12] MEDS: MAGNESIUM CHLORIDE 64 MG TABLET.DR PO SCH (08:06)
[2017-05-12] MEDS: POTASSIUM CHLORIDE 20 MEQ TAB.ER.PRT PO SCH (08:06)
[2017-05-12] MEDS: FUROSEMIDE 20 MG TABLET PO SCH (08:06)
[2017-05-12] MEDS: METRONIDAZOLE PMX 500MG/100ML 100 ML IV SCH ×2 (08:06→18:36)
[2017-05-12] MEDS: SENNA/DOCUSATE TABLET PO SCH (08:07)
[2017-05-12] MEDS: prednisOLONE 15 MG/5 ML ORAL SOLN PO SCH (08:07)
[2017-05-12] MEDS ORDERED: LIDOCAINE 1%, 20ML ONE (08:22)
[2017-05-12 09:47] LABS: CELLS COUNTED 29; DILUTION 1; WBC SQUARES COUNTED 3
[2017-05-12] MEDS: CEFTRIAXONE PMX 1GM/50ML 50 ML IV SCH (11:26)
[2017-05-12 14:00] VITALS: BP 115/75
[2017-05-12] MEDS: DIPHENHYDRAMINE 25 MG CAPSULE PO PRN (14:11)
[2017-05-12] MEDS: NICOTINE 7 MG/24 HR PATCH.TD24 TD SCH (18:00)
[2017-05-12 19:00] VITALS: BP 105/71
[2017-05-13] MEDS: HYDROmorphone 1 MG/ML, 1ML IV PRN ×6 (00:57→22:51)
[2017-05-13 01:02] VITALS: BP 103/64
[2017-05-13] MEDS: METRONIDAZOLE PMX 500MG/100ML 100 ML IV SCH ×3 (01:49→18:22)
[2017-05-13 05:01] LABS: BLOOD UREA NITROGEN 1 mg/dL (7-18)
[2017-05-13 05:04] LABS: ASPARTATE AMINO TRANSFERASE 56 U/L (15-37)
[2017-05-13 07:32] VITALS: BP 101/61
[2017-05-13] MEDS ORDERED: MAGNESIUM CHLORIDE 64 MG TABLET.DR PO SCH (09:00)
[2017-05-13] MEDS: SENNA/DOCUSATE TABLET PO SCH (09:00)
[2017-05-13] MEDS: CEFTRIAXONE PMX 1GM/50ML 50 ML IV SCH (09:50)
[2017-05-13] MEDS: prednisOLONE 15 MG/5 ML ORAL SOLN PO SCH (09:50)
[2017-05-13] MEDS: FUROSEMIDE 20 MG TABLET PO SCH (09:51)
[2017-05-13] MEDS: SPIRONOLACTONE 25 MG TABLET PO SCH (09:51)
[2017-05-13] MEDS: POTASSIUM CHLORIDE 20 MEQ TAB.ER.PRT PO SCH (09:51)
[2017-05-13 14:17] VITALS: BP 101/61
[2017-05-13] MEDS: NICOTINE 7 MG/24 HR PATCH.TD24 TD SCH (17:56)
[2017-05-13] MEDS ORDERED: maalox/diphenh/lido/sucralfate 5 ML PO PRN (18:00)
[2017-05-13 19:41] VITALS: BP 104/69
[2017-05-14] MEDS: METRONIDAZOLE PMX 500MG/100ML 100 ML IV SCH ×3 (02:12→17:50)
[2017-05-14 02:13] VITALS: BP 114/81
[2017-05-14] MEDS: HYDROmorphone 1 MG/ML, 1ML IV PRN ×5 (02:48→19:55)
[2017-05-14 04:10] LABS: BLOOD UREA NITROGEN 2 mg/dL (7-18)
[2017-05-14 04:14] LABS: ASPARTATE AMINO TRANSFERASE 63 U/L (15-37)
[2017-05-14 06:47] VITALS: BP 108/63
[2017-05-14] MEDS: prednisOLONE 15 MG/5 ML ORAL SOLN PO SCH (08:24)
[2017-05-14] MEDS: SPIRONOLACTONE 25 MG TABLET PO SCH (08:25)
[2017-05-14] MEDS: FUROSEMIDE 20 MG TABLET PO SCH (08:26)
[2017-05-14] MEDS: SENNA/DOCUSATE TABLET PO SCH (08:26)
[2017-05-14] MEDS: POTASSIUM CHLORIDE 20 MEQ TAB.ER.PRT PO SCH (08:26)
[2017-05-14] MEDS: CEFTRIAXONE PMX 1GM/50ML 50 ML IV SCH (10:39)
[2017-05-14 13:55] VITALS: BP 110/65
[2017-05-14] MEDS: NICOTINE 7 MG/24 HR PATCH.TD24 TD SCH (17:50)
[2017-05-14 19:46] VITALS: BP 115/74
[2017-05-15 01:50] VITALS: BP 111/65
[2017-05-15] MEDS: METRONIDAZOLE PMX 500MG/100ML 100 ML IV SCH ×3 (02:04→18:18)
[2017-05-15] MEDS: HYDROmorphone 1 MG/ML, 1ML IV PRN ×6 (04:13→21:03)
[2017-05-15 05:27] LABS: HEMATOCRIT 33.3 % (34.6-47.8); HEMOGLOBIN 11.2 g/dL (11.7-16.4); WHITE BLOOD COUNT 16.1 x10^3/uL (3.4-10)
[2017-05-15 05:33] LABS: ASPARTATE AMINO TRANSFERASE 64 U/L (15-37); BLOOD UREA NITROGEN 3 mg/dL (7-18)
[2017-05-15 08:00] VITALS: BP 106/62
[2017-05-15] MEDS: prednisOLONE 15 MG/5 ML ORAL SOLN PO SCH (08:40)
[2017-05-15] MEDS: SPIRONOLACTONE 25 MG TABLET PO SCH (08:42)
[2017-05-15] MEDS: POTASSIUM CHLORIDE 20 MEQ TAB.ER.PRT PO SCH (08:42)
[2017-05-15] MEDS: FUROSEMIDE 20 MG TABLET PO SCH (08:43)
[2017-05-15] MEDS: SENNA/DOCUSATE TABLET PO SCH (08:43)
[2017-05-15] MEDS: CEFTRIAXONE PMX 1GM/50ML 50 ML IV SCH (10:21)
[2017-05-15 14:00] VITALS: BP 117/99
[2017-05-15] MEDS: NICOTINE 7 MG/24 HR PATCH.TD24 TD SCH (17:36)
[2017-05-15] MEDS: ONDANSETRON 2MG/ML, 2ML IVPush PRN (17:42)
[2017-05-15 20:14] VITALS: BP 117/76
[2017-05-16 00:47] VITALS: BP 111/72
[2017-05-16] MEDS: HYDROmorphone 1 MG/ML, 1ML IV PRN ×6 (01:25→22:05)
[2017-05-16] MEDS: METRONIDAZOLE PMX 500MG/100ML 100 ML IV SCH ×3 (01:27→18:04)
[2017-05-16 05:39] LABS: BLOOD UREA NITROGEN 4 mg/dL (7-18)
[2017-05-16 05:42] LABS: ASPARTATE AMINO TRANSFERASE 70 U/L (15-37)
[2017-05-16 06:13] LABS: HEMOGLOBIN 11.5 g/dL (11.7-16.4)
[2017-05-16 07:05] VITALS: BP 107/68
[2017-05-16] MEDS: SPIRONOLACTONE 25 MG TABLET PO SCH (08:24)
[2017-05-16] MEDS: FUROSEMIDE 20 MG TABLET PO SCH (08:24)
[2017-05-16] MEDS: prednisOLONE 15 MG/5 ML ORAL SOLN PO SCH (08:24)
[2017-05-16] MEDS: SENNA/DOCUSATE TABLET PO SCH (08:25)
[2017-05-16] MEDS: CEFTRIAXONE PMX 1GM/50ML 50 ML IV SCH (08:45)
[2017-05-16 13:59] VITALS: BP 122/75
[2017-05-16] MEDS: NICOTINE 7 MG/24 HR PATCH.TD24 TD SCH (17:11)
[2017-05-16 20:28] VITALS: BP 108/62
[2017-05-17 01:12] VITALS: BP 107/68
[2017-05-17] MEDS: METRONIDAZOLE PMX 500MG/100ML 100 ML IV SCH ×3 (01:50→18:43)
[2017-05-17] MEDS: HYDROmorphone 1 MG/ML, 1ML IV PRN ×6 (02:06→22:25)
[2017-05-17 05:11] LABS: ASPARTATE AMINO TRANSFERASE 70 U/L (15-37); BLOOD UREA NITROGEN 6 mg/dL (7-18)
[2017-05-17 07:05] VITALS: BP 106/69
[2017-05-17] MEDS: SENNA/DOCUSATE TABLET PO SCH (07:46)
[2017-05-17] MEDS: prednisOLONE 15 MG/5 ML ORAL SOLN PO SCH (07:46)
[2017-05-17] MEDS: SPIRONOLACTONE 25 MG TABLET PO SCH (07:46)
[2017-05-17] MEDS: FUROSEMIDE 20 MG TABLET PO SCH (07:46)
[2017-05-17] MEDS: CEFTRIAXONE PMX 1GM/50ML 50 ML IV SCH (09:18)
[2017-05-17 12:54] VITALS: BP 110/73
[2017-05-17] MEDS: NICOTINE 7 MG/24 HR PATCH.TD24 TD SCH (18:00)
[2017-05-17 19:03] VITALS: BP 107/71
[2017-05-18] VITALS (8 sets, daily range): BP systolic 105–115; BP diastolic 65–71
[2017-05-18] MEDS: METRONIDAZOLE PMX 500MG/100ML 100 ML IV SCH (02:19)
[2017-05-18] MEDS: HYDROmorphone 1 MG/ML, 1ML IV PRN ×5 (02:19→20:26)
[2017-05-18 05:27] LABS: ASPARTATE AMINO TRANSFERASE 67 U/L (15-37); BLOOD UREA NITROGEN 7 mg/dL (7-18)
[2017-05-18] MEDS: prednisOLONE 15 MG/5 ML ORAL SOLN PO SCH (08:40)
[2017-05-18] MEDS: SPIRONOLACTONE 25 MG TABLET PO SCH (08:41)
[2017-05-18] MEDS: SENNA/DOCUSATE TABLET PO SCH (08:41)
[2017-05-18] MEDS: FUROSEMIDE 20 MG TABLET PO SCH ×2 (08:42→20:26)
[2017-05-18] MEDS: ONDANSETRON 2MG/ML, 2ML IVPush PRN ×2 (11:40→18:02)
[2017-05-18] MEDS: NICOTINE 7 MG/24 HR PATCH.TD24 TD SCH (18:00)
[2017-05-18] MEDS ORDERED: HYDROmorphone 1 MG/ML, 1ML IV ONE (18:00)
[2017-05-19] MEDS: HYDROmorphone 1 MG/ML, 1ML IV PRN ×6 (00:29→21:35)
[2017-05-19 02:10] VITALS: BP 112/73
[2017-05-19 05:20] LABS: HEMATOCRIT 30.7 % (34.6-47.8); HEMOGLOBIN 10.4 g/dL (11.7-16.4); WHITE BLOOD COUNT 16.6 x10^3/uL (3.4-10)
[2017-05-19 05:39] LABS: ASPARTATE AMINO TRANSFERASE 69 U/L (15-37); BLOOD UREA NITROGEN 8 mg/dL (7-18)
[2017-05-19 06:01] VITALS: BP 113/69
[2017-05-19] MEDS: prednisOLONE 15 MG/5 ML ORAL SOLN PO SCH (08:00)
[2017-05-19] MEDS: SPIRONOLACTONE 25 MG TABLET PO SCH (08:52)
[2017-05-19] MEDS: FUROSEMIDE 20 MG TABLET PO SCH ×2 (08:52→21:35)
[2017-05-19] MEDS: SENNA/DOCUSATE TABLET PO SCH (08:52)
[2017-05-19] MEDS: POTASSIUM CHLORIDE 20 MEQ TAB.ER.PRT PO SCH (10:00)
[2017-05-19] MEDS ORDERED: MAGNESIUM SULFATE PMX 2GM/50ML 50 ML IV ONE (10:00)
[2017-05-19] MEDS ORDERED: POTASSIUM CHLORIDE 20 MEQ TAB.ER.PRT PO ONE (10:00)
[2017-05-19] MEDS ORDERED: HYDROmorphone 2 MG/ML, 1ML ONE ×2 (12:58→21:30)
[2017-05-19] MEDS: MAGNESIUM CHLORIDE 64 MG TABLET.DR PO SCH (13:04)
[2017-05-19 13:32] VITALS: BP 110/67
[2017-05-19] MEDS: DIPHENHYDRAMINE 25 MG CAPSULE PO PRN (13:49)
[2017-05-19] MEDS: NICOTINE 7 MG/24 HR PATCH.TD24 TD SCH (16:03)
[2017-05-19 19:05] VITALS: BP 110/72
[2017-05-20] MEDS ORDERED: HYDROmorphone 2 MG/ML, 1ML ONE ×6 (01:49→21:20)
[2017-05-20] MEDS: HYDROmorphone 1 MG/ML, 1ML IV PRN ×7 (01:54→21:25)
[2017-05-20 02:05] VITALS: BP 109/73
[2017-05-20 05:37] LABS: ASPARTATE AMINO TRANSFERASE 73 U/L (15-37); BLOOD UREA NITROGEN 10 mg/dL (7-18)
[2017-05-20 07:15] VITALS: BP 110/69
[2017-05-20] MEDS: SENNA/DOCUSATE TABLET PO SCH (09:00)
[2017-05-20] MEDS: POTASSIUM CHLORIDE 20 MEQ TAB.ER.PRT PO SCH (10:10)
[2017-05-20] MEDS: SPIRONOLACTONE 25 MG TABLET PO SCH (10:10)
[2017-05-20] MEDS: FUROSEMIDE 20 MG TABLET PO SCH ×2 (10:10→21:25)
[2017-05-20] MEDS: prednisOLONE 15 MG/5 ML ORAL SOLN PO SCH (10:11)
[2017-05-20] MEDS: MAGNESIUM CHLORIDE 64 MG TABLET.DR PO SCH (10:11)
[2017-05-20 13:14] VITALS: BP 109/70
[2017-05-20] MEDS: NICOTINE 7 MG/24 HR PATCH.TD24 TD SCH (18:00)
[2017-05-20 20:19] VITALS: BP 109/70
[2017-05-21] MEDS ORDERED: HYDROmorphone 2 MG/ML, 1ML ONE ×8 (00:28→23:43)
[2017-05-21] MEDS: HYDROmorphone 1 MG/ML, 1ML IV PRN ×8 (00:33→23:46)
[2017-05-21 01:09] VITALS: BP 112/67
[2017-05-21 05:46] LABS: ASPARTATE AMINO TRANSFERASE 81 U/L (15-37); BLOOD UREA NITROGEN 9 mg/dL (7-18)
[2017-05-21 07:39] VITALS: BP 107/67
[2017-05-21] MEDS: POTASSIUM CHLORIDE 20 MEQ TAB.ER.PRT PO SCH (08:00)
[2017-05-21] MEDS: SENNA/DOCUSATE TABLET PO SCH (09:00)
[2017-05-21] MEDS: prednisOLONE 15 MG/5 ML ORAL SOLN PO SCH (09:34)
[2017-05-21] MEDS: MAGNESIUM CHLORIDE 64 MG TABLET.DR PO SCH (09:35)
[2017-05-21] MEDS: SPIRONOLACTONE 25 MG TABLET PO SCH (09:35)
[2017-05-21] MEDS: FUROSEMIDE 20 MG TABLET PO SCH ×2 (09:35→19:21)
[2017-05-21 14:03] VITALS: BP 101/60
[2017-05-21] MEDS: NICOTINE 7 MG/24 HR PATCH.TD24 TD SCH (18:00)
[2017-05-21 19:47] VITALS: BP 113/70
[2017-05-22 02:56] VITALS: BP 110/70
[2017-05-22] MEDS ORDERED: HYDROmorphone 2 MG/ML, 1ML ONE ×7 (02:56→22:32)
[2017-05-22] MEDS: HYDROmorphone 1 MG/ML, 1ML IV PRN ×7 (03:04→22:43)
[2017-05-22 05:48] LABS: HEMATOCRIT 30.6 % (34.6-47.8); HEMOGLOBIN 10.3 g/dL (11.7-16.4); WHITE BLOOD COUNT 16.8 x10^3/uL (3.4-10)
[2017-05-22 05:52] LABS: BLOOD UREA NITROGEN 9 mg/dL (7-18)
[2017-05-22 05:56] LABS: ASPARTATE AMINO TRANSFERASE 81 U/L (15-37)
[2017-05-22 06:53] VITALS: BP 105/66
[2017-05-22] MEDS: SENNA/DOCUSATE TABLET PO SCH (09:00)
[2017-05-22] MEDS ORDERED: MAGNESIUM SULFATE PMX 2GM/50ML 50 ML IV ONE (09:30)
[2017-05-22] MEDS: prednisOLONE 15 MG/5 ML ORAL SOLN PO SCH (09:42)
[2017-05-22] MEDS: SPIRONOLACTONE 25 MG TABLET PO SCH (09:43)
[2017-05-22] MEDS: POTASSIUM CHLORIDE 20 MEQ TAB.ER.PRT PO SCH (09:43)
[2017-05-22] MEDS: FUROSEMIDE 20 MG TABLET PO SCH ×2 (09:43→20:20)
[2017-05-22] MEDS: DIPHENHYDRAMINE 25 MG CAPSULE PO PRN (10:38)
[2017-05-22 13:43] VITALS: BP 108/71
[2017-05-22] MEDS ORDERED: LIDOCAINE 1%, 20ML ONE (14:21)
[2017-05-22] MEDS: NICOTINE 7 MG/24 HR PATCH.TD24 TD SCH (17:25)
[2017-05-22 19:40] VITALS: BP 114/72
[2017-05-22] MEDS: MAGNESIUM CHLORIDE 64 MG TABLET.DR PO SCH (20:20)
[2017-05-23 01:41] VITALS: BP 106/61
[2017-05-23] MEDS ORDERED: HYDROmorphone 2 MG/ML, 1ML ONE ×3 (04:56→11:04)
[2017-05-23] MEDS: HYDROmorphone 1 MG/ML, 1ML IV PRN ×3 (04:59→11:08)
[2017-05-23 05:12] LABS: HEMATOCRIT 29.3 % (34.6-47.8); WHITE BLOOD COUNT 14.9 x10^3/uL (3.4-10)
[2017-05-23 05:17] LABS: BLOOD UREA NITROGEN 10 mg/dL (7-18)
[2017-05-23 05:21] LABS: ASPARTATE AMINO TRANSFERASE 85 U/L (15-37)
[2017-05-23 07:01] VITALS: BP 111/67
[2017-05-23] MEDS: prednisOLONE 15 MG/5 ML ORAL SOLN PO SCH (08:25)
[2017-05-23] MEDS: MAGNESIUM CHLORIDE 64 MG TABLET.DR PO SCH (08:26)
[2017-05-23] MEDS: POTASSIUM CHLORIDE 20 MEQ TAB.ER.PRT PO SCH (08:26)
[2017-05-23] MEDS: SPIRONOLACTONE 25 MG TABLET PO SCH (08:26)
[2017-05-23] MEDS: FUROSEMIDE 20 MG TABLET PO SCH (08:26)
[2017-05-23] MEDS: SENNA/DOCUSATE TABLET PO SCH (09:00)
[2017-05-23] MEDS ORDERED: MAGN64TA9 PO (12:43)
[2017-05-23] MEDS ORDERED: POTA20TA6 PO (12:43)
[2017-05-23] MEDS ORDERED: PRED15SO3 PO (12:43)
[2017-05-23] MEDS ORDERED: OXYC5TAB3 PO (12:43)
[2017-05-23] MEDS ORDERED: SPIR25TA PO (12:43)
[2017-05-23] MEDS ORDERED: FURO20TA3 PO (12:43)
== END 2017-05-23 14:21 | disposition home or self-care (01) | DRG 432 ==
LOC: ED 15:50 → EDIP 17:10 → 3NE 18:26 → DCLOUNGE 05-23 14:00
PROVIDERS: ADMIT Internal Medicine; ATTEND Internal Medicine
PROC: 0W9G3ZZ Drainage of Peritoneal Cavity, Percutaneous Approach (ICD-10-PCS; principal; 2017-05-07)
PROC: 30233L1 Transfusion of Nonautologous Fresh Plasma into Peripheral Vein, Percutaneous Approach (ICD-10-PCS; 2017-05-07)
PROC: 30233N1 Transfusion of Nonautologous Red Blood Cells into Peripheral Vein, Percutaneous Approach (ICD-10-PCS; 2017-05-07)
PROC: 30233K1 Transfusion of Nonautologous Frozen Plasma into Peripheral Vein, Percutaneous Approach (ICD-10-PCS; 2017-05-07)
PROC: 0W9G3ZZ Drainage of Peritoneal Cavity, Percutaneous Approach (ICD-10-PCS; 2017-05-12)
PROC: 0W9G3ZZ Drainage of Peritoneal Cavity, Percutaneous Approach (ICD-10-PCS; 2017-05-22)
DX: K70.11 Alcoholic hepatitis with ascites (principal); E43 Unspecified severe protein-calorie malnutrition; K70.31 Alcoholic cirrhosis of liver with ascites; D61.818 Other pancytopenia; K65.2 Spontaneous bacterial peritonitis; K86.3 Pseudocyst of pancreas; D68.4 Acquired coagulation factor deficiency; D68.9 Coagulation defect, unspecified; E87.0 Hyperosmolality and hypernatremia; J98.11 Atelectasis; K76.6 Portal hypertension; Z68.1 Body mass index [BMI] 19.9 or less, adult; R44.3 Hallucinations, unspecified; E87.5 Hyperkalemia; B19.20 Unspecified viral hepatitis C without hepatic coma; R00.0 Tachycardia, unspecified; F32.9 Major depressive disorder, single episode, unspecified; F17.200 Nicotine dependence, unspecified, uncomplicated; E87.6 Hypokalemia; F10.20 Alcohol dependence, uncomplicated; F12.90 Cannabis use, unspecified, uncomplicated; K06.8 Other specified disorders of gingiva and edentulous alveolar ridge; K52.9 Noninfective gastroenteritis and colitis, unspecified; K82.8 Other specified diseases of gallbladder; R04.0 Epistaxis; Z82.49 Family history of ischemic heart disease and other diseases of the circulatory system; Z82.5 Family history of asthma and other chronic lower respiratory diseases; Z71.41 Alcohol abuse counseling and surveillance of alcoholic; Z91.19 Patient's noncompliance with other medical treatment and regimen; Z88.4 Allergy status to anesthetic agent; Z87.440 Personal history of urinary (tract) infections; Z71.6 Tobacco abuse counseling
CPT/HCPCS: 36415; 36430; 49083; 74177; 80048; 80053; 81001; 82042; 82140; 82247; 82248; 83615; 83690; 83735; 84100; 84157; 84703; 85025; 85610; 85730; 86850; 86900; 86923; 87040; 87070; 87086; 87205; 87324; 88112; 89051; 93005; 93975; 96361; 96374; 96375; J0696; J0744; J1170; J2405; J3430; J3480; J3490; P9047; Q9967; J1940; J3475; J7030; J7040; J7510; P9016; P9017; Q0163

== ENCOUNTER 2017-05-24 08:27 | Emergency (ER) | payer MEDICAID ==
[~2017-05-24] VITALS: Ht 167.6 cm; Wt 47.7 kg
[~2017-05-24 08:27] MED LIST changes: +FURO20TA3 PO; +MAGN64TA9 PO; +OXYC5TAB3 PO; +POTA20TA6 PO; +SPIR25TA PO
[2017-05-24] MEDS ORDERED: SODIUM CHLORIDE 0.9% 1,000ML IVBOLUS ONE (09:30)
[2017-05-24] MEDS ORDERED: THIAMINE 100MG TABLET PO ONE ×2 (09:30→10:00)
[2017-05-24] MEDS ORDERED: ONDANSETRON 2MG/ML, 2ML IVPush ONE ×2 (09:30→11:30)
[2017-05-24] MEDS ORDERED: FOLIC ACID 1 MG TABLET PO ONE (09:30)
[2017-05-24] MEDS ORDERED: SODIUM CHLORIDE FLUSH 10ML SYR IVF ONE (09:30)
[2017-05-24] MEDS ORDERED: ONDANSETRON 2MG/ML, 2ML ONE ×2 (09:40→12:17)
[2017-05-24 10:04] LABS: HEMATOCRIT 33.1 % (34.6-47.8); HEMOGLOBIN 11.1 g/dL (11.7-16.4); WHITE BLOOD COUNT 13.6 x10^3/uL (3.4-10)
[2017-05-24 10:05] LABS: ASPARTATE AMINO TRANSFERASE 108 U/L (15-37); BLOOD UREA NITROGEN 12 mg/dL (7-18)
[2017-05-24 10:20] LABS: ANISOCYTOSIS 2+; TARGET CELLS 1+
[2017-05-24 10:21] LABS: LARGE PLATELETS 1+; MICROCYTOSIS 1+
[2017-05-24] MEDS ORDERED: MORPHINE SULFATE 4 MG/ML, 1ML IVPush PRN (11:30)
[2017-05-24] MEDS ORDERED: OXYMETAZOLINE NASAL SPRAY 0.05%, 15ML NAS ONE (11:30)
[2017-05-24] MEDS ORDERED: THIAMINE 100MG TABLET ONE (12:16)
[2017-05-24] MEDS ORDERED: morphine SULFATE 10 MG/ML, 1ML ONE (12:17)
[2017-05-24 13:30] VITALS: BP 110/81
== END 2017-05-24 13:32 | disposition home or self-care (01) ==
LOC: ED 11:27
DX: K29.71 Gastritis, unspecified, with bleeding (principal); R04.0 Epistaxis; K92.0 Hematemesis
CPT/HCPCS: 36415; 80053; 80307; 81001; 84703; 85025; 85610; 85730; 87077; 87086; 93005; 96361; 96374; 96375; 96376; 99285; J2405; J7030; 87186; G0479

== ENCOUNTER 2017-05-26 19:44 | Inpatient (IN) | payer MEDICAID ==
[2017-05-26] VITALS (10 sets, daily range): BP systolic 93–114; BP diastolic 56–69
[~2017-05-26] VITALS: Ht 162.6 cm; Wt 55.1 kg
[2017-05-26] MEDS ORDERED: ONDANSETRON 2MG/ML, 2ML IVPush ONE (20:00)
[2017-05-26] MEDS ORDERED: PLEASE ENTER HEIGHT AND WEIGHT MC SCH (20:00)
[2017-05-26] MEDS ORDERED: SODIUM CHLORIDE 0.9% 1,000ML IVBOLUS ONE (20:00)
[2017-05-26] MEDS ORDERED: morphine SULFATE 10 MG/ML, 1ML ONE ×2 (20:18→22:14)
[2017-05-26] MEDS ORDERED: ONDANSETRON 2MG/ML, 2ML ONE ×2 (20:19→20:54)
[2017-05-26] MEDS ORDERED: COCAINE TOPICAL SOLN 4%, 4ML ONE (20:19)
[2017-05-26] MEDS: MORPHINE SULFATE 4 MG/ML, 1ML IVPush PRN ×2 (20:22→20:59)
[2017-05-26 20:24] LABS: HEMOGLOBIN 6.8 g/dL (11.7-16.4)
[2017-05-26 20:25] LABS: HEMATOCRIT 19.7 % (34.6-47.8)
[2017-05-26] MEDS ORDERED: OCTREOTIDE 500 MCG in SODIUM CHLORIDE 0.9% 249 ML IV PRN (20:26)
[2017-05-26] MEDS ORDERED: SODIUM CHLORIDE 0.9% 1,000 ML IV ONE (20:26)
[2017-05-26] MEDS ORDERED: PANTOPRAZOLE 80 MG in SODIUM CHLORIDE 0.9% 50 ML IVPB ONE (20:26)
[2017-05-26] MEDS ORDERED: PANTOPRAZOLE 80 MG in SODIUM CHLORIDE 0.9% 100 ML IV SCH (20:26)
[2017-05-26 20:28] LABS: ASPARTATE AMINO TRANSFERASE 112 U/L (15-37); BLOOD UREA NITROGEN 30 mg/dL (7-18)
[2017-05-26] MEDS ORDERED: COCAINE TOPICAL SOLN 4%, 4ML TP ONE (20:30)
[2017-05-26] MEDS ORDERED: CEFTRIAXONE PMX 1GM/50ML 50 ML IV ONE (20:30)
[2017-05-26] MEDS ORDERED: OCTREOTIDE 100MCG/ML, 1ML (0.1MG/ML) IV ONE (20:30)
[2017-05-26] MEDS ORDERED: SODIUM CHLORIDE FLUSH 10ML SYR IVF ONE (20:30)
[2017-05-26] MEDS ORDERED: CEFTRIAXONE PMX 1GM/50ML 50 ML ONE (20:43)
[2017-05-26] MEDS ORDERED: OCTREOTIDE 100MCG/ML, 1ML (0.1MG/ML) ONE (20:43)
[2017-05-26] MEDS ORDERED: MORPHINE SULFATE 4 MG/ML, 1ML ONE (20:54)
[2017-05-26 20:58] LABS: ANISOCYTOSIS 2+
[2017-05-26 20:59] LABS: MICROCYTOSIS 1+; POLYCHROMASIA 1+
[2017-05-26 21:02] LABS: OVALOCYTES 1+
[2017-05-26 21:03] LABS: TARGET CELLS 1+
[2017-05-26 21:04] LABS: LARGE PLATELETS 1+
[2017-05-26] MEDS ORDERED: MORPHINE SULFATE 4 MG/ML, 1ML IVPush ONE (22:30)
[2017-05-27] VITALS (10 sets, daily range): BP systolic 93–108; BP diastolic 61–68
[2017-05-27] MEDS ORDERED: IRON SUCROSE COMPLEX 100MG/5ML IV ONE (01:00)
[2017-05-27 01:19] LABS: HEMOGLOBIN 10.8 g/dL (11.7-16.4); WHITE BLOOD COUNT 11.6 x10^3/uL (3.4-10)
[2017-05-27 01:49] LABS: ANISOCYTOSIS 2+; MICROCYTOSIS 1+; POLYCHROMASIA 1+
[2017-05-27 01:50] LABS: OVALOCYTES 1+
[2017-05-27 01:51] LABS: TARGET CELLS 1+
[2017-05-27 01:52] LABS: LARGE PLATELETS 1+
[2017-05-27] MEDS ORDERED: ONDANSETRON 2MG/ML, 2ML ONE (01:59)
[2017-05-27] MEDS ORDERED: ONDANSETRON 2MG/ML, 2ML IVPush PRN (02:00)
[2017-05-27] MEDS: HYDROmorphone 2 MG/ML, 1ML IV PRN ×5 (02:28→20:49)
[2017-05-27] MEDS ORDERED: OCTREOTIDE 50 MCG/ML, 1ML (0.05MG/ML) IVPush SCH (03:26)
[2017-05-27] MEDS: PANTOPRAZOLE 80 MG in SODIUM CHLORIDE 0.9% 100 ML IV SCH ×2 (05:09→16:29)
[2017-05-27] MEDS: METRONIDAZOLE PMX 500MG/100ML 100 ML IV SCH ×3 (05:09→20:49)
[2017-05-27] MEDS ORDERED: OCTREOTIDE 100MCG/ML, 1ML (0.1MG/ML) IVPush SCH (09:00)
[2017-05-27] MEDS: OCTREOTIDE 500 MCG in SODIUM CHLORIDE 0.9% 249 ML IV SCH ×2 (09:07→20:49)
[2017-05-27] MEDS: CEFTRIAXONE PMX 1GM/50ML 50 ML IV SCH (22:10)
[2017-05-28] MEDS: PANTOPRAZOLE 80 MG in SODIUM CHLORIDE 0.9% 100 ML IV SCH ×3 (00:52→21:45)
[2017-05-28] MEDS: HYDROmorphone 2 MG/ML, 1ML IV PRN ×6 (00:52→21:45)
[2017-05-28 01:52] VITALS: BP 99/58
[2017-05-28] MEDS: METRONIDAZOLE PMX 500MG/100ML 100 ML IV SCH ×3 (04:38→19:54)
[2017-05-28 05:02] LABS: HEMOGLOBIN 8.2 g/dL (11.7-16.4); WHITE BLOOD COUNT 7.3 x10^3/uL (3.4-10)
[2017-05-28 05:07] LABS: ASPARTATE AMINO TRANSFERASE 114 U/L (15-37)
[2017-05-28 05:09] LABS: BLOOD UREA NITROGEN 18 mg/dL (7-18)
[2017-05-28 07:35] VITALS: BP 107/66
[2017-05-28] MEDS: PHYTONADIONE 5 MG TABLET PO SCH (09:00)
[2017-05-28] MEDS: OCTREOTIDE 500 MCG in SODIUM CHLORIDE 0.9% 249 ML IV SCH ×2 (09:00→19:53)
[2017-05-28] MEDS: SPIRONOLACTONE 25 MG TABLET PO SCH (09:00)
[2017-05-28 14:09] VITALS: BP 102/66
[2017-05-28 19:07] VITALS: BP 101/65
[2017-05-28] MEDS: CEFTRIAXONE PMX 1GM/50ML 50 ML IV SCH (21:45)
[2017-05-29] MEDS: HYDROmorphone 2 MG/ML, 1ML IV PRN ×5 (01:54→20:32)
[2017-05-29 02:00] VITALS: BP 108/69
[2017-05-29] MEDS: METRONIDAZOLE PMX 500MG/100ML 100 ML IV SCH ×3 (04:00→20:31)
[2017-05-29 05:25] LABS: HEMOGLOBIN 7.8 g/dL (11.7-16.4); WHITE BLOOD COUNT 5.7 x10^3/uL (3.4-10)
[2017-05-29 05:26] LABS: BLOOD UREA NITROGEN 8 mg/dL (7-18)
[2017-05-29 05:29] LABS: ASPARTATE AMINO TRANSFERASE 120 U/L (15-37)
[2017-05-29 05:46] LABS: HEMATOCRIT 22.8 % (34.6-47.8)
[2017-05-29] MEDS: OCTREOTIDE 500 MCG in SODIUM CHLORIDE 0.9% 249 ML IV SCH ×2 (06:27→15:53)
[2017-05-29 07:27] VITALS: BP 105/68
[2017-05-29] MEDS: PANTOPRAZOLE 80 MG in SODIUM CHLORIDE 0.9% 100 ML IV SCH ×2 (07:28→17:42)
[2017-05-29] MEDS: SPIRONOLACTONE 25 MG TABLET PO SCH (07:28)
[2017-05-29] MEDS: PHYTONADIONE 5 MG TABLET PO SCH (07:28)
[2017-05-29 08:17] VITALS: BP 107/75
[2017-05-29 12:48] VITALS: BP 105/69
[2017-05-29] MEDS ORDERED: LIDOCAINE 1%, 20ML ONE (14:08)
[2017-05-29 20:05] VITALS: BP 104/65
[2017-05-29] MEDS: CEFTRIAXONE PMX 1GM/50ML 50 ML IV SCH (22:00)
[2017-05-30] MEDS: HYDROmorphone 2 MG/ML, 1ML IV PRN ×3 (00:53→10:06)
[2017-05-30] MEDS: OCTREOTIDE 500 MCG in SODIUM CHLORIDE 0.9% 249 ML IV SCH ×2 (02:00→11:00)
[2017-05-30 02:02] VITALS: BP 107/67
[2017-05-30] MEDS: PANTOPRAZOLE 80 MG in SODIUM CHLORIDE 0.9% 100 ML IV SCH ×2 (03:40→13:00)
[2017-05-30] MEDS: METRONIDAZOLE PMX 500MG/100ML 100 ML IV SCH ×2 (04:49→12:00)
[2017-05-30 05:04] LABS: HEMATOCRIT 24.3 % (34.6-47.8); HEMOGLOBIN 8.1 g/dL (11.7-16.4); WHITE BLOOD COUNT 6.2 x10^3/uL (3.4-10)
[2017-05-30 05:07] LABS: BLOOD UREA NITROGEN 5 mg/dL (7-18)
[2017-05-30 05:12] LABS: ASPARTATE AMINO TRANSFERASE 103 U/L (15-37)
[2017-05-30 07:14] VITALS: BP 105/65
[2017-05-30] MEDS: SPIRONOLACTONE 25 MG TABLET PO SCH (08:11)
[2017-05-30] MEDS: PHYTONADIONE 5 MG TABLET PO SCH (08:11)
[2017-05-30] MEDS: NITROFURANTOIN (MACROBID) 100 MG CAPSULE PO SCH ×2 (08:11→08:13)
[2017-05-30] MEDS ORDERED: HYDROcodone/APAP 5/325 TABLET PO ONE (11:00)
[2017-05-30] MEDS ORDERED: SPIR25TA PO (11:42)
[2017-05-30] MEDS ORDERED: LEVO500T47 PO (11:42)
[2017-05-30 13:38] VITALS: BP 104/68
== END 2017-05-30 14:22 | disposition home or self-care (01) | DRG 432 ==
LOC: ED 20:25 → EDIP 22:33 → 4WST 23:37 → DCLOUNGE 05-30 13:44
PROVIDERS: ADMIT Surgery; ATTEND Surgery
PROC: 30233N1 Transfusion of Nonautologous Red Blood Cells into Peripheral Vein, Percutaneous Approach (ICD-10-PCS; 2017-05-26)
PROC: 30233M1 Transfusion of Nonautologous Plasma Cryoprecipitate into Peripheral Vein, Percutaneous Approach (ICD-10-PCS; 2017-05-27)
PROC: 0W9G3ZZ Drainage of Peritoneal Cavity, Percutaneous Approach (ICD-10-PCS; principal; 2017-05-29)
DX: K70.31 Alcoholic cirrhosis of liver with ascites (principal); E43 Unspecified severe protein-calorie malnutrition; K92.0 Hematemesis; K65.2 Spontaneous bacterial peritonitis; K72.90 Hepatic failure, unspecified without coma; D68.4 Acquired coagulation factor deficiency; K76.6 Portal hypertension; N39.0 Urinary tract infection, site not specified; R71.0 Precipitous drop in hematocrit; R65.10 Systemic inflammatory response syndrome (SIRS) of non-infectious origin without acute organ dysfunction; D69.59 Other secondary thrombocytopenia; E83.51 Hypocalcemia; B95.2 Enterococcus as the cause of diseases classified elsewhere; D64.9 Anemia, unspecified; N19 Unspecified kidney failure; R04.0 Epistaxis; R00.0 Tachycardia, unspecified; Z79.01 Long term (current) use of anticoagulants; Z68.20 Body mass index [BMI] 20.0-20.9, adult
CPT/HCPCS: 36415; 36430; 49083; 80053; 80307; 81001; 82945; 83605; 83615; 83690; 83986; 84157; 84478; 84703; 85025; 85610; 85730; 86850; 86900; 86923; 87070; 87077; 87086; 87106; 87186; 87205; 89051; 93005; 96374; 96375; 96376; J0696; J1170; J1756; J2354; J2405; J3490; C9113; G0479; J7030; J7050; P9016; P9017

== ENCOUNTER 2017-06-11 08:40 | Emergency (ER) | payer MEDICAID ==
[~2017-06-11] VITALS: Ht 167.6 cm; Wt 51.4 kg
[~2017-06-11 08:40] MED LIST changes: +LEVO500T47 PO
[2017-06-11] MEDS ORDERED: ONDANSETRON 2MG/ML, 2ML ONE (09:27)
[2017-06-11] MEDS ORDERED: MORPHINE SULFATE 4 MG/ML, 1ML ONE ×2 (09:27→11:17)
[2017-06-11] MEDS: MORPHINE SULFATE 4 MG/ML, 1ML IVPush PRN ×2 (09:30→11:19)
[2017-06-11] MEDS ORDERED: SODIUM CHLORIDE FLUSH 10ML SYR IVF ONE (09:30)
[2017-06-11] MEDS ORDERED: SODIUM CHLORIDE 0.9% 1,000ML IVBOLUS ONE (09:30)
[2017-06-11] MEDS ORDERED: ONDANSETRON 2MG/ML, 2ML IVPush ONE (09:30)
[2017-06-11] MEDS ORDERED: LIDOCAINE 2%, 20ML ONE (09:38)
[2017-06-11 09:41] LABS: INTERNATIONAL NORMALIZED RATIO 1.58 (0.93-1.1); PROTHROMBIN TIME 16.1 Seconds (9.6-11.5)
[2017-06-11 09:44] LABS: ALANINE AMINOTRANSFERASE 22 U/L (12-78); ALBUMIN 1.6 g/dL (3.4-5.0); ANION GAP 7 mmol/L (5-15); CALCIUM 7.8 mg/dL (8.5-10.1); CHLORIDE 108 mmol/L (98-107); CREATININE 0.53 mg/dL (0.55-1.02)
[2017-06-11 09:48] LABS: ALKALINE PHOSPHATASE 215 U/L (45-117); BILIRUBIN,TOTAL 3.9 mg/dL (0.2-1.0); TOTAL PROTEIN 6.6 g/dL (6.4-8.2)
[2017-06-11 09:49] LABS: BASOPHILS # (AUTO) 0.03 x10^3/uL (0-0.1); BASOPHILS % (AUTO) 1 % (0-1); EOSINOPHILS # (AUTO) 0.02 x10^3/uL (0-0.4); EOSINOPHILS % (AUTO) 0 % (1-7); LYMPHOCYTES # (AUTO) 1.43 x10^3/uL (1-3.4); LYMPHOCYTES % (AUTO) 25 % (22-44); MD SCAN; MEAN CORPUSCULAR HEMOGLOBIN 31.2 pg (27.0-34.8); MEAN CORPUSCULAR HGB CONC 33.8 g/dL (32.4-35.8); MEAN CORPUSCULAR VOLUME 92.3 fL (80-100); MEAN PLATELET VOLUME 8.6 fL (7.4-10.4); MONOCYTES # (AUTO) 0.73 x10^3/uL (0.2-0.8); MONOCYTES % (AUTO) 13 % (2-9); NEUTROPHILS # (AUTO) 3.44 x10^3/uL (1.8-6.8); NEUTROPHILS % (AUTO) 61 % (42-75); PLATELET COUNT 92 x10^3/uL (130-400); RED BLOOD COUNT 2.88 x10^6/uL (3.82-5.3); RED CELL DISTRIBUTION WIDTH 21.2 % (9.6-15.2)
[2017-06-11 11:13] VITALS: BP 105/66
[2017-06-11 11:55] LABS: CELLS COUNTED 41
== END 2017-06-11 12:37 | disposition home or self-care (01) ==
LOC: ED 10:11
DX: K70.31 Alcoholic cirrhosis of liver with ascites (principal); D64.9 Anemia, unspecified; D69.6 Thrombocytopenia, unspecified; F17.200 Nicotine dependence, unspecified, uncomplicated; R04.0 Epistaxis; Z88.8 Allergy status to other drugs, medicaments and biological substances
CPT/HCPCS: 36415; 49083; 74022; 80053; 83690; 84703; 85025; 85610; 85730; 87040; 87070; 87205; 88112; 88305; 89051; 96361; 96374; 96375; 96376; 99285; J2405; J3490; J7030

== ENCOUNTER 2017-07-11 00:05 | Inpatient (IN) | payer MEDICAID ==
[~2017-07-11] VITALS: Ht 167.6 cm; Wt 61.0 kg
[2017-07-11] VITALS (11 sets, daily range): BP systolic 94–122; BP diastolic 59–76
[2017-07-11] MEDS ORDERED: SODIUM CHLORIDE 0.9% 1,000ML IVBOLUS ONE (01:00)
[2017-07-11] MEDS ORDERED: SODIUM CHLORIDE FLUSH 10ML SYR IVF ONE (01:00)
[2017-07-11] MEDS ORDERED: ONDANSETRON 2MG/ML, 2ML IVPush ONE (01:00)
[2017-07-11] MEDS ORDERED: ONDANSETRON 2MG/ML, 2ML ONE (01:07)
[2017-07-11 01:11] LABS: MEAN CORPUSCULAR HEMOGLOBIN 30.6 pg (27.0-34.8); MEAN CORPUSCULAR HGB CONC 33.6 g/dL (32.4-35.8); MEAN CORPUSCULAR VOLUME 91.1 fL (80-100); MEAN PLATELET VOLUME 9.3 fL (7.4-10.4); PLATELET COUNT 77 x10^3/uL (130-400); RED CELL DISTRIBUTION WIDTH 23.7 % (9.6-15.2)
[2017-07-11 01:13] LABS: ANION GAP 8 mmol/L (5-15); CALCIUM 7.6 mg/dL (8.5-10.1); CHLORIDE 109 mmol/L (98-107); CREATININE 0.39 mg/dL (0.55-1.02)
[2017-07-11 01:14] LABS: ALANINE AMINOTRANSFERASE 18 U/L (12-78); ALBUMIN 2.4 g/dL (3.4-5.0)
[2017-07-11] MEDS ORDERED: PANTOPRAZOLE 80 MG in SODIUM CHLORIDE 0.9% 50 ML IVPB ONE (01:16)
[2017-07-11] MEDS ORDERED: OCTREOTIDE 500 MCG in SODIUM CHLORIDE 0.9% 249 ML IV PRN (01:16)
[2017-07-11 01:18] LABS: ALKALINE PHOSPHATASE 155 U/L (45-117)
[2017-07-11] MEDS ORDERED: MORPHINE SULFATE 4 MG/ML, 1ML ONE ×2 (01:18→01:27)
[2017-07-11] MEDS ORDERED: PROMETHAZINE 25 MG/ML, 1ML ONE (01:27)
[2017-07-11] MEDS ORDERED: OCTREOTIDE 100MCG/ML, 1ML (0.1MG/ML) ONE (01:28)
[2017-07-11 01:30] LABS: INTERNATIONAL NORMALIZED RATIO 2.25 (0.93-1.1)
[2017-07-11] MEDS ORDERED: MORPHINE SULFATE 4 MG/ML, 1ML IVPush PRN (01:30)
[2017-07-11] MEDS ORDERED: PROMETHAZINE 25 MG/ML, 1ML IM ONE (01:30)
[2017-07-11] MEDS ORDERED: OCTREOTIDE 100MCG/ML, 1ML (0.1MG/ML) IV ONE (01:30)
[2017-07-11 01:41] LABS: BASOPHILS # (AUTO) 0.04 x10^3/uL (0-0.1); BASOPHILS % (AUTO) 1 % (0-1); EOSINOPHILS # (AUTO) 0.11 x10^3/uL (0-0.4); EOSINOPHILS % (AUTO) 1 % (1-7); LYMPHOCYTES # (AUTO) 2.81 x10^3/uL (1-3.4); LYMPHOCYTES % (AUTO) 34 % (22-44); MD SCAN; MONOCYTES # (AUTO) 0.92 x10^3/uL (0.2-0.8); MONOCYTES % (AUTO) 11 % (2-9); NEUTROPHILS # (AUTO) 4.42 x10^3/uL (1.8-6.8); NEUTROPHILS % (AUTO) 53 % (42-75)
[2017-07-11] MEDS ORDERED: FENTANYL PF 100 MCG/2ML ONE ×2 (02:58→03:11)
[2017-07-11] MEDS: PANTOPRAZOLE 80 MG in SODIUM CHLORIDE 0.9% 100 ML IV SCH ×2 (04:06→11:16)
[2017-07-11] MEDS ORDERED: ONDANSETRON 2MG/ML, 2ML IVPush PRN (04:30)
[2017-07-11] MEDS ORDERED: CIPROFLOXACIN/PMX 400MG/200ML 200 ML ONE (04:49)
[2017-07-11] MEDS ORDERED: ALBUMIN HUMAN 25% 50 ML IV ONE (05:00)
[2017-07-11] MEDS: CIPROFLOXACIN/PMX 400MG/200ML 200 ML IV SCH ×2 (05:05→16:44)
[2017-07-11] MEDS: SODIUM CHLORIDE 0.9% 1,000 ML IV SCH ×2 (06:27→16:44)
[2017-07-11] MEDS: THIAMINE 100 MG, FOLIC ACID 1 MG, MVI ADULT 10 ML in SODIUM CHLORIDE 0.9% 1,000 ML IV SCH (10:25)
[2017-07-11] MEDS: PHYTONADIONE 10 MG/ML, 1ML SQ SCH (10:26)
[2017-07-11] MEDS ORDERED: LIDOCAINE 1%, 20ML ONE (10:32)
[2017-07-11 17:05] LABS: MICROSCOPIC INDICATED
[2017-07-11 17:06] LABS: CULTURE INDICATED? YES
[2017-07-11 18:38] LABS: INTERNATIONAL NORMALIZED RATIO 1.69 (0.93-1.1); PROTHROMBIN TIME 17.4 Seconds (9.6-11.5)
[2017-07-11] MEDS: MORPHINE SULFATE 4 MG/ML, 1ML IVPush PRN (23:16)
[2017-07-12] MEDS: SODIUM CHLORIDE 0.9% 1,000 ML IV SCH (00:25)
[2017-07-12] MEDS: MORPHINE SULFATE 4 MG/ML, 1ML IVPush PRN (02:50)
[2017-07-12 03:14] LABS: MEAN CORPUSCULAR HEMOGLOBIN 30.8 pg (27.0-34.8); MEAN CORPUSCULAR HGB CONC 33.6 g/dL (32.4-35.8); MEAN CORPUSCULAR VOLUME 91.9 fL (80-100); RED BLOOD COUNT 2.58 x10^6/uL (3.82-5.3); RED CELL DISTRIBUTION WIDTH 22.5 % (9.6-15.2)
[2017-07-12 03:18] LABS: INTERNATIONAL NORMALIZED RATIO 1.9 (0.93-1.1); PROTHROMBIN TIME 19.5 Seconds (9.6-11.5)
[2017-07-12 03:20] LABS: ALANINE AMINOTRANSFERASE 16 U/L (12-78); ALBUMIN 1.9 g/dL (3.4-5.0); ANION GAP 7 mmol/L (5-15); CALCIUM 7.3 mg/dL (8.5-10.1); CHLORIDE 113 mmol/L (98-107); CREATININE 0.41 mg/dL (0.55-1.02)
[2017-07-12 03:23] LABS: ALKALINE PHOSPHATASE 93 U/L (45-117); BILIRUBIN,TOTAL 4.3 mg/dL (0.2-1.0); TOTAL PROTEIN 4.4 g/dL (6.4-8.2)
[2017-07-12 03:30] LABS: MD SCAN; MEAN PLATELET VOLUME 9.3 fL (7.4-10.4); PLATELET COUNT 51 x10^3/uL (130-400)
[2017-07-12 03:31] LABS: BASOPHILS # (AUTO) 0.04 x10^3/uL (0-0.1); BASOPHILS % (AUTO) 1 % (0-1); EOSINOPHILS # (AUTO) 0.06 x10^3/uL (0-0.4); EOSINOPHILS % (AUTO) 2 % (1-7); LYMPHOCYTES # (AUTO) 1.37 x10^3/uL (1-3.4); LYMPHOCYTES % (AUTO) 34 % (22-44); MONOCYTES % (AUTO) 8 % (2-9); NEUTROPHILS # (AUTO) 2.27 x10^3/uL (1.8-6.8); NEUTROPHILS % (AUTO) 56 % (42-75)
[2017-07-12 03:58] VITALS: BP 107/84
[2017-07-12] MEDS: CIPROFLOXACIN/PMX 400MG/200ML 200 ML IV SCH ×2 (03:58→16:53)
[2017-07-12 06:27] LABS: CELLS COUNTED 57
[2017-07-12] MEDS ORDERED: SODIUM PHOSPHATE 10 MMOL in SODIUM CHLORIDE 0.9% 500 ML IV ONE (07:30)
[2017-07-12] MEDS ORDERED: MAGNESIUM SULFATE PMX 4GM/100M 100 ML IV ONE (07:30)
[2017-07-12] MEDS: FLUCONAZOLE 200 MG/100 ML 100 ML IV SCH (07:45)
[2017-07-12] MEDS: PANTOPRAZOLE 40 MG IV IVPush SCH (10:07)
[2017-07-12] MEDS: prednisOLONE 15 MG/5 ML ORAL SOLN PO SCH (10:07)
[2017-07-12] MEDS: PHYTONADIONE 10 MG/ML, 1ML SQ SCH (10:07)
[2017-07-12] MEDS: OXYcodone IR 5MG TABLET PO PRN ×3 (10:08→22:31)
[2017-07-12] MEDS: THIAMINE 100 MG, FOLIC ACID 1 MG, MVI ADULT 10 ML in SODIUM CHLORIDE 0.9% 1,000 ML IV SCH (11:12)
[2017-07-12 15:33] VITALS: BP 107/68
[2017-07-12 18:26] VITALS: BP 120/75
[2017-07-13] VITALS (9 sets, daily range): BP systolic 97–116; BP diastolic 55–71
[2017-07-13] MEDS: SODIUM CHLORIDE 0.9% 1,000 ML IV SCH (02:05)
[2017-07-13] MEDS: OXYcodone IR 5MG TABLET PO PRN ×3 (04:34→23:51)
[2017-07-13] MEDS: CIPROFLOXACIN/PMX 400MG/200ML 200 ML IV SCH ×2 (04:34→18:49)
[2017-07-13 06:02] LABS: MEAN CORPUSCULAR HEMOGLOBIN 31.4 pg (27.0-34.8); MEAN CORPUSCULAR VOLUME 92.4 fL (80-100); MEAN PLATELET VOLUME 9.7 fL (7.4-10.4); RED BLOOD COUNT 2.42 x10^6/uL (3.82-5.3); RED CELL DISTRIBUTION WIDTH 21.6 % (9.6-15.2)
[2017-07-13 06:05] LABS: PLATELET COUNT 43 x10^3/uL (130-400)
[2017-07-13 06:24] LABS: MD YES
[2017-07-13 06:26] LABS: LYMPH#(MANUAL) 0.64 x10^3/uL (1-3.4); LYMPHS% (MANUAL) 12 % (22-44); MONOS#(MANUAL) 0.11 x10^3/uL (0.3-2.7); MONOS% (MANUAL) 2 % (2-9); SEG#(MANUAL) 4.56 x10^3/uL (1.8-6.8); SEGS% (MANUAL) 86 % (42-75)
[2017-07-13 06:28] LABS: <PLATELET ESTIMATE> DECREASED; <PLT MORPHOLOGY> NORMAL PLT MORPH; ANISOCYTOSIS 2+; SCHISTOCYTES 1+
[2017-07-13] MEDS: FLUCONAZOLE 200 MG/100 ML 100 ML IV SCH (08:51)
[2017-07-13] MEDS: PHYTONADIONE 10 MG/ML, 1ML SQ SCH (08:51)
[2017-07-13] MEDS: PANTOPRAZOLE 40 MG IV IVPush SCH (08:51)
[2017-07-13] MEDS: prednisOLONE 15 MG/5 ML ORAL SOLN PO SCH (08:51)
[2017-07-13] MEDS ORDERED: PHENYLEPHRINE NASAL 1%, 15ML SPRAY NAS PRN (09:30)
[2017-07-13 10:07] LABS: RED BLOOD COUNT 2.51 x10^6/uL (3.82-5.3)
[2017-07-13 10:08] LABS: MEAN CORPUSCULAR HEMOGLOBIN 30.8 pg (27.0-34.8); MEAN CORPUSCULAR VOLUME 93.3 fL (80-100); MEAN PLATELET VOLUME 9.7 fL (7.4-10.4); PLATELET COUNT 51 x10^3/uL (130-400); RED CELL DISTRIBUTION WIDTH 21.9 % (9.6-15.2)
[2017-07-13 10:12] LABS: CHLORIDE 109 mmol/L (98-107); INTERNATIONAL NORMALIZED RATIO 1.84 (0.93-1.1); PROTHROMBIN TIME 18.7 Seconds (9.6-11.5)
[2017-07-13 10:13] LABS: ALANINE AMINOTRANSFERASE 20 U/L (12-78); ALBUMIN 2.1 g/dL (3.4-5.0); ANION GAP 8 mmol/L (5-15); CALCIUM 7.4 mg/dL (8.5-10.1); CREATININE 0.45 mg/dL (0.55-1.02)
[2017-07-13 10:15] LABS: ALKALINE PHOSPHATASE 109 U/L (45-117); TOTAL PROTEIN 5.1 g/dL (6.4-8.2)
[2017-07-13 10:19] LABS: MD YES
[2017-07-13 10:26] LABS: LYMPH#(MANUAL) 1.12 x10^3/uL (1-3.4); LYMPHS% (MANUAL) 17 % (22-44); MONOS% (MANUAL) 6 % (2-9); SEG#(MANUAL) 5.08 x10^3/uL (1.8-6.8); SEGS% (MANUAL) 77 % (42-75)
[2017-07-13 10:27] LABS: SCHISTOCYTES 1+
[2017-07-13 10:28] LABS: ANISOCYTOSIS 2+
[2017-07-13 10:29] LABS: <PLATELET ESTIMATE> DECREASED; <PLT MORPHOLOGY> NORMAL PLT MORPH
[2017-07-13] MEDS ORDERED: SODIUM PHOSPHATE 20 MMOL in SODIUM CHLORIDE 0.9% 500 ML IV ONE (12:30)
[2017-07-13] MEDS: DIPHENHYDRAMINE 25 MG CAPSULE PO PRN ×2 (15:00→19:51)
[2017-07-13] MEDS: PONARIS NAS SCH ×2 (16:00→21:42)
[2017-07-13] MEDS: OXYMETAZOLINE NASAL SPRAY 0.05%, 15ML NAS SCH ×2 (17:57→23:52)
[2017-07-13] MEDS: THIAMINE 100 MG, FOLIC ACID 1 MG, MVI ADULT 10 ML in SODIUM CHLORIDE 0.9% 1,000 ML IV SCH (17:59)
[2017-07-13] MEDS ORDERED: OXYcodone IR 5MG TABLET ONE (19:45)
[2017-07-13] MEDS ORDERED: OXYcodone IR 5MG TABLET PO PRN (20:00)
[2017-07-14] MEDS: SODIUM CHLORIDE 0.9% 1,000 ML IV SCH ×2 (01:25→14:20)
[2017-07-14] MEDS: CIPROFLOXACIN/PMX 400MG/200ML 200 ML IV SCH ×2 (04:14→16:15)
[2017-07-14 04:20] VITALS: BP 120/75
[2017-07-14] MEDS: OXYcodone IR 5MG TABLET PO PRN ×5 (04:33→22:47)
[2017-07-14 04:45] LABS: ANION GAP 8 mmol/L (5-15); CALCIUM 7.6 mg/dL (8.5-10.1); CHLORIDE 111 mmol/L (98-107); CREATININE 0.44 mg/dL (0.55-1.02)
[2017-07-14 05:14] LABS: MEAN CORPUSCULAR HEMOGLOBIN 31.7 pg (27.0-34.8); MEAN CORPUSCULAR HGB CONC 33.9 g/dL (32.4-35.8); MEAN CORPUSCULAR VOLUME 93.5 fL (80-100); RED CELL DISTRIBUTION WIDTH 21.9 % (9.6-15.2)
[2017-07-14 05:43] LABS: BASOPHILS # (AUTO) 0.01 x10^3/uL (0-0.1); BASOPHILS % (AUTO) 0 % (0-1); EOSINOPHILS % (AUTO) 0 % (1-7); LYMPHOCYTES # (AUTO) 0.64 x10^3/uL (1-3.4); LYMPHOCYTES % (AUTO) 12 % (22-44); MD SCAN; MEAN PLATELET VOLUME 9.9 fL (7.4-10.4); MONOCYTES # (AUTO) 0.32 x10^3/uL (0.2-0.8); MONOCYTES % (AUTO) 6 % (2-9); NEUTROPHILS # (AUTO) 4.38 x10^3/uL (1.8-6.8); NEUTROPHILS % (AUTO) 82 % (42-75)
[2017-07-14 05:45] LABS: PLATELET COUNT 43 x10^3/uL (130-400)
[2017-07-14] MEDS: PANTOPRAZOLE 40 MG IV IVPush SCH (08:03)
[2017-07-14] MEDS: OXYMETAZOLINE NASAL SPRAY 0.05%, 15ML NAS SCH ×2 (08:04→16:15)
[2017-07-14] MEDS: FLUCONAZOLE 200 MG/100 ML 100 ML IV SCH (08:04)
[2017-07-14] MEDS: prednisOLONE 15 MG/5 ML ORAL SOLN PO SCH (08:09)
[2017-07-14] MEDS: PONARIS NAS SCH ×2 (08:22→16:14)
[2017-07-14 13:09] VITALS: BP 106/65
[2017-07-14 20:00] VITALS: BP 103/60
[2017-07-15] MEDS: OXYMETAZOLINE NASAL SPRAY 0.05%, 15ML NAS SCH ×4 (01:23→23:52)
[2017-07-15] MEDS: PONARIS NAS SCH ×4 (01:23→23:53)
[2017-07-15 01:29] VITALS: BP 97/58
[2017-07-15] MEDS: SODIUM CHLORIDE 0.9% 1,000 ML IV SCH (02:10)
[2017-07-15] MEDS: CIPROFLOXACIN/PMX 400MG/200ML 200 ML IV SCH (04:44)
[2017-07-15 05:06] LABS: INTERNATIONAL NORMALIZED RATIO 1.73 (0.93-1.1); PROTHROMBIN TIME 17.6 Seconds (9.6-11.5)
[2017-07-15 05:09] LABS: ANION GAP 7 mmol/L (5-15); CALCIUM 7.6 mg/dL (8.5-10.1); CHLORIDE 110 mmol/L (98-107)
[2017-07-15 05:10] LABS: MEAN CORPUSCULAR HEMOGLOBIN 31.5 pg (27.0-34.8); MEAN CORPUSCULAR HGB CONC 33.4 g/dL (32.4-35.8); MEAN CORPUSCULAR VOLUME 94.3 fL (80-100); MEAN PLATELET VOLUME 9.9 fL (7.4-10.4); RED CELL DISTRIBUTION WIDTH 23.1 % (9.6-15.2)
[2017-07-15 05:14] LABS: ALANINE AMINOTRANSFERASE 22 U/L (12-78); ALKALINE PHOSPHATASE 93 U/L (45-117); BILIRUBIN,TOTAL 2.8 mg/dL (0.2-1.0); TOTAL PROTEIN 4.9 g/dL (6.4-8.2)
[2017-07-15 05:17] LABS: PLATELET COUNT 48 x10^3/uL (130-400)
[2017-07-15 06:00] LABS: BASOPHILS # (AUTO) 0.02 x10^3/uL (0-0.1); BASOPHILS % (AUTO) 0 % (0-1); EOSINOPHILS % (AUTO) 0 % (1-7); LYMPHOCYTES # (AUTO) 0.82 x10^3/uL (1-3.4); LYMPHOCYTES % (AUTO) 12 % (22-44); MD SCAN; MONOCYTES # (AUTO) 0.65 x10^3/uL (0.2-0.8); MONOCYTES % (AUTO) 10 % (2-9); NEUTROPHILS # (AUTO) 5.36 x10^3/uL (1.8-6.8); NEUTROPHILS % (AUTO) 78 % (42-75)
[2017-07-15 08:21] VITALS: BP 98/62
[2017-07-15] MEDS: prednisOLONE 15 MG/5 ML ORAL SOLN PO SCH (08:32)
[2017-07-15] MEDS: PANTOPRAZOLE 40 MG IV IVPush SCH (08:38)
[2017-07-15] MEDS: OXYcodone IR 5MG TABLET PO PRN ×4 (08:38→23:52)
[2017-07-15] MEDS: FLUCONAZOLE 200 MG/100 ML 100 ML IV SCH (08:39)
[2017-07-15 13:16] VITALS: BP 109/72
[2017-07-15] MEDS: MUPIROCIN OINT 2%, 22GM NAS SCH ×2 (15:38→23:52)
[2017-07-15 19:41] VITALS: BP 104/71
[2017-07-16 04:39] VITALS: BP 102/60
[2017-07-16] MEDS: OXYcodone IR 5MG TABLET PO PRN ×4 (04:56→21:27)
[2017-07-16 08:03] VITALS: BP 105/64
[2017-07-16] MEDS: PONARIS NAS SCH ×3 (09:00→21:33)
[2017-07-16] MEDS: prednisOLONE 15 MG/5 ML ORAL SOLN PO SCH (09:49)
[2017-07-16] MEDS: FLUCONAZOLE 200 MG/100 ML 100 ML IV SCH (09:50)
[2017-07-16] MEDS: PANTOPROZOLE 40MG TABLET PO SCH (09:50)
[2017-07-16] MEDS: OXYMETAZOLINE NASAL SPRAY 0.05%, 15ML NAS SCH ×2 (09:52→15:42)
[2017-07-16] MEDS: MUPIROCIN OINT 2%, 22GM NAS SCH ×3 (09:53→21:34)
[2017-07-16 14:00] VITALS: BP 111/71
[2017-07-16 18:40] VITALS: BP 114/76
[2017-07-17 03:02] VITALS: BP 103/70
[2017-07-17] MEDS: OXYcodone IR 5MG TABLET PO PRN ×2 (03:07→07:04)
[2017-07-17] MEDS ORDERED: PONARIS NAS (06:34)
[2017-07-17] MEDS ORDERED: PANT40TA5 PO (06:34)
[2017-07-17] MEDS ORDERED: PRED15SO3 PO (06:34)
[2017-07-17] MEDS ORDERED: PHEN15SP NAS (06:34)
[2017-07-17 08:17] VITALS: BP 98/65
[2017-07-17] MEDS: PANTOPROZOLE 40MG TABLET PO SCH (08:42)
[2017-07-17] MEDS: prednisOLONE 15 MG/5 ML ORAL SOLN PO SCH (08:42)
[2017-07-17] MEDS: PONARIS NAS SCH (08:43)
[2017-07-17] MEDS: MUPIROCIN OINT 2%, 22GM NAS SCH (08:43)
== END 2017-07-17 10:39 | disposition home or self-care (01) | DRG 432 ==
LOC: ED 00:37 → EDIP 04:17 → CCU 05:12 → 4WST 07-12 14:04 → CCU 07-13 09:37 → 3NE 07-14 09:58
PROVIDERS: ADMIT Hospitalist; ATTEND Hospitalist
PROC: 02HV33Z Insertion of Infusion Device into Superior Vena Cava, Percutaneous Approach (ICD-10-PCS; 2017-07-11)
PROC: B548ZZA Ultrasonography of Superior Vena Cava, Guidance (ICD-10-PCS; 2017-07-11)
PROC: 30233L1 Transfusion of Nonautologous Fresh Plasma into Peripheral Vein, Percutaneous Approach (ICD-10-PCS; 2017-07-11)
PROC: 30233N1 Transfusion of Nonautologous Red Blood Cells into Peripheral Vein, Percutaneous Approach (ICD-10-PCS; 2017-07-11)
PROC: 30233K1 Transfusion of Nonautologous Frozen Plasma into Peripheral Vein, Percutaneous Approach (ICD-10-PCS; 2017-07-11)
PROC: 0DJ08ZZ Inspection of Upper Intestinal Tract, Via Natural or Artificial Opening Endoscopic (ICD-10-PCS; 2017-07-11)
PROC: 0W9G3ZZ Drainage of Peritoneal Cavity, Percutaneous Approach (ICD-10-PCS; principal; 2017-07-11 02:30)
DX: K70.31 Alcoholic cirrhosis of liver with ascites (principal); K22.6 Gastro-esophageal laceration-hemorrhage syndrome; K70.11 Alcoholic hepatitis with ascites; D68.4 Acquired coagulation factor deficiency; K26.4 Chronic or unspecified duodenal ulcer with hemorrhage; D62 Acute posthemorrhagic anemia; D69.59 Other secondary thrombocytopenia; K22.2 Esophageal obstruction; K76.6 Portal hypertension; N39.0 Urinary tract infection, site not specified; B19.20 Unspecified viral hepatitis C without hepatic coma; K31.9 Disease of stomach and duodenum, unspecified; Z88.8 Allergy status to other drugs, medicaments and biological substances; F10.20 Alcohol dependence, uncomplicated; K20.9 Esophagitis, unspecified; K31.89 Other diseases of stomach and duodenum; K70.40 Alcoholic hepatic failure without coma; R04.0 Epistaxis; Z79.01 Long term (current) use of anticoagulants; Z87.19 Personal history of other diseases of the digestive system; Z91.19 Patient's noncompliance with other medical treatment and regimen
CPT/HCPCS: 36415; 36430; 36569; 49083; 71045; 80048; 80053; 81001; 82042; 83690; 83735; 84100; 84703; 85014; 85018; 85025; 85610; 85730; 86850; 86900; 86923; 87070; 87075; 87081; 87086; 87106; 87205; 89051; 96365; 96366; 96367; 96372; 96375; J0744; J2354; J2405; J2550; J3411; J3430; J3490; P9047; C9113; J1450; J3475; J7030; J7040; J7050; J7510; P9016; P9017; Q0163

== ENCOUNTER 2017-07-21 07:58 | Emergency (ER) | payer MEDICAID ==
[~2017-07-21] VITALS: Ht 167.6 cm; Wt 47.7 kg
[~2017-07-21 07:58] MED LIST changes: +PANT40TA5 PO; +PHEN15SP NAS; +PONARIS NAS
[2017-07-21] MEDS ORDERED: SODIUM CHLORIDE FLUSH 10ML SYR IVF ONE (08:30)
[2017-07-21] MEDS ORDERED: ONDANSETRON 2MG/ML, 2ML IVPush ONE (08:30)
[2017-07-21] MEDS ORDERED: HYDROmorphone 2 MG/ML, 1ML ONE ×3 (08:54→12:05)
[2017-07-21] MEDS ORDERED: ONDANSETRON 2MG/ML, 2ML ONE (08:55)
[2017-07-21 08:58] LABS: INTERNATIONAL NORMALIZED RATIO 1.56 (0.93-1.1); PROTHROMBIN TIME 15.9 Seconds (9.6-11.5)
[2017-07-21 08:59] LABS: ALANINE AMINOTRANSFERASE 33 U/L (12-78); ALBUMIN 2.3 g/dL (3.4-5.0); ANION GAP 10 mmol/L (5-15); CALCIUM 8.3 mg/dL (8.5-10.1); CHLORIDE 105 mmol/L (98-107); CREATININE 0.47 mg/dL (0.55-1.02)
[2017-07-21 09:02] LABS: ALKALINE PHOSPHATASE 118 U/L (45-117); BILIRUBIN,TOTAL 4.2 mg/dL (0.2-1.0); TOTAL PROTEIN 5.7 g/dL (6.4-8.2)
[2017-07-21] MEDS ORDERED: LIDOCAINE 1%, 20ML ONE (09:07)
[2017-07-21 09:38] LABS: MEAN CORPUSCULAR HEMOGLOBIN 31.8 pg (27.0-34.8); MEAN CORPUSCULAR HGB CONC 33.2 g/dL (32.4-35.8); MEAN CORPUSCULAR VOLUME 95.8 fL (80-100); MEAN PLATELET VOLUME 11.1 fL (7.4-10.4); PLATELET COUNT 84 x10^3/uL (130-400); RED BLOOD COUNT 3.14 x10^6/uL (3.82-5.3); RED CELL DISTRIBUTION WIDTH 24.9 % (9.6-15.2)
[2017-07-21] MEDS: HYDROmorphone 1 MG/ML, 1ML IVPush PRN ×2 (09:40→10:46)
[2017-07-21 09:41] LABS: BASOPHILS # (AUTO) 0.02 x10^3/uL (0-0.1); BASOPHILS % (AUTO) 0 % (0-1); EOSINOPHILS % (AUTO) 2 % (1-7); LYMPHOCYTES # (AUTO) 1.42 x10^3/uL (1-3.4); LYMPHOCYTES % (AUTO) 24 % (22-44); MD SCAN; MONOCYTES # (AUTO) 0.49 x10^3/uL (0.2-0.8); MONOCYTES % (AUTO) 8 % (2-9); NEUTROPHILS # (AUTO) 3.81 x10^3/uL (1.8-6.8); NEUTROPHILS % (AUTO) 65 % (42-75)
[2017-07-21 11:22] LABS: CELLS COUNTED 65
[2017-07-21 11:23] VITALS: BP 109/61
[2017-07-21] MEDS ORDERED: HYDROmorphone 1 MG/ML, 1ML IV ONE (12:00)
== END 2017-07-21 12:13 | disposition home or self-care (01) ==
LOC: ED 08:38
DX: R10.84 Generalized abdominal pain (principal); K29.70 Gastritis, unspecified, without bleeding
CPT/HCPCS: 36415; 49083; 80053; 82042; 82140; 83615; 83690; 85025; 85610; 85730; 87070; 87205; 89051; 96374; 96375; 96376; 99285; J1170; J2405; J3490

== ENCOUNTER 2017-07-23 23:30 | Emergency (ER) | payer MEDICAID ==
[~2017-07-23] VITALS: Ht 167.6 cm; Wt 47.7 kg
[2017-07-24] MEDS ORDERED: OXYcodone IR 5MG TABLET ONE ×2 (00:15→03:39)
[2017-07-24] MEDS ORDERED: ONDANSETRON ODT 8 MG ONE (00:15)
[2017-07-24] MEDS: OXYcodone IR 5MG TABLET PO ONE ×2 (00:18→03:42)
[2017-07-24 00:30] LABS: MEAN CORPUSCULAR HEMOGLOBIN 32.2 pg (27.0-34.8); MEAN CORPUSCULAR HGB CONC 33.6 g/dL (32.4-35.8); MEAN PLATELET VOLUME 10.2 fL (7.4-10.4); PLATELET COUNT 78 x10^3/uL (130-400); RED BLOOD COUNT 2.75 x10^6/uL (3.82-5.3); RED CELL DISTRIBUTION WIDTH 23.8 % (9.6-15.2)
[2017-07-24] MEDS ORDERED: ONDANSETRON ODT 8 MG PO ONE (00:30)
[2017-07-24 00:36] LABS: INTERNATIONAL NORMALIZED RATIO 1.7 (0.93-1.1); PROTHROMBIN TIME 17.3 Seconds (9.6-11.5)
[2017-07-24 00:39] LABS: ALBUMIN 2.1 g/dL (3.4-5.0); ANION GAP 10 mmol/L (5-15); CALCIUM 7.3 mg/dL (8.5-10.1); CHLORIDE 106 mmol/L (98-107)
[2017-07-24] MEDS ORDERED: HYDROmorphone 2 MG/ML, 1ML ONE (00:39)
[2017-07-24 00:41] LABS: ALANINE AMINOTRANSFERASE 23 U/L (12-78); ALKALINE PHOSPHATASE 132 U/L (45-117); BILIRUBIN,TOTAL 3.3 mg/dL (0.2-1.0); TOTAL PROTEIN 5.2 g/dL (6.4-8.2)
[2017-07-24 00:46] LABS: BASOPHILS # (AUTO) 0.04 x10^3/uL (0-0.1); BASOPHILS % (AUTO) 1 % (0-1); EOSINOPHILS # (AUTO) 0.12 x10^3/uL (0-0.4); EOSINOPHILS % (AUTO) 2 % (1-7); LYMPHOCYTES # (AUTO) 1.36 x10^3/uL (1-3.4); LYMPHOCYTES % (AUTO) 23 % (22-44); MD MORPH REVIEW ONLY; MONOCYTES # (AUTO) 0.71 x10^3/uL (0.2-0.8); MONOCYTES % (AUTO) 12 % (2-9); NEUTROPHILS # (AUTO) 3.61 x10^3/uL (1.8-6.8); NEUTROPHILS % (AUTO) 62 % (42-75)
[2017-07-24 00:47] LABS: ANISOCYTOSIS 1+
[2017-07-24 00:49] LABS: OVALOCYTES 1+; SCHISTOCYTES 1+
[2017-07-24 00:51] LABS: POLYCHROMASIA 1+
[2017-07-24 00:53] LABS: <PLATELET ESTIMATE> DECREASED; LARGE PLATELETS 1+
[2017-07-24] MEDS ORDERED: HYDROmorphone 2 MG/ML, 1ML IM ONE (01:00)
[2017-07-24] MEDS ORDERED: HYDROmorphone 1 MG/ML, 1ML IM ONE (01:00)
[2017-07-24 04:08] VITALS: BP 101/62
== END 2017-07-24 04:14 | disposition home or self-care (01) ==
LOC: ED 23:41
DX: K70.31 Alcoholic cirrhosis of liver with ascites (principal); G89.29 Other chronic pain; D64.9 Anemia, unspecified
CPT/HCPCS: 36415; 49083; 80053; 85025; 85610; 85730; 96372; 99285; J1170; Q0162

== ENCOUNTER 2017-07-27 18:23 | Inpatient (IN) | payer MEDICAID ==
[~2017-07-27] VITALS: Ht 167.6 cm; Wt 56.8 kg
[2017-07-27] MEDS ORDERED: PANTOPRAZOLE 80 MG in SODIUM CHLORIDE 0.9% 50 ML IVPB ONE (19:40)
[2017-07-27] MEDS ORDERED: SODIUM CHLORIDE FLUSH 10ML SYR IVF ONE (20:00)
[2017-07-27] MEDS ORDERED: PANTOPRAZOLE IVPB ONE (20:00)
[2017-07-27] MEDS ORDERED: SODIUM CHLORIDE 0.9% 1,000ML IVBOLUS ONE ×2 (20:00→21:00)
[2017-07-27] MEDS ORDERED: DEXTROSE 5% IVPB ONE (20:00)
[2017-07-27 20:07] LABS: INTERNATIONAL NORMALIZED RATIO 1.59 (0.93-1.1); PROTHROMBIN TIME 16.2 Seconds (9.6-11.5)
[2017-07-27 20:10] LABS: ALANINE AMINOTRANSFERASE 18 U/L (12-78); ALBUMIN 1.9 g/dL (3.4-5.0); ANION GAP 8 mmol/L (5-15); CALCIUM 7.5 mg/dL (8.5-10.1); CHLORIDE 107 mmol/L (98-107); CREATININE 0.42 mg/dL (0.55-1.02)
[2017-07-27 20:12] LABS: ALKALINE PHOSPHATASE 156 U/L (45-117); BILIRUBIN,TOTAL 2.4 mg/dL (0.2-1.0); TOTAL PROTEIN 5.3 g/dL (6.4-8.2)
[2017-07-27 20:44] LABS: BASOPHILS # (AUTO) 0.02 x10^3/uL (0-0.1); BASOPHILS % (AUTO) 0 % (0-1); EOSINOPHILS # (AUTO) 0.04 x10^3/uL (0-0.4); EOSINOPHILS % (AUTO) 1 % (1-7); LYMPHOCYTES % (AUTO) 22 % (22-44); MD MORPH REVIEW ONLY; MEAN CORPUSCULAR HEMOGLOBIN 31.9 pg (27.0-34.8); MEAN CORPUSCULAR HGB CONC 33.2 g/dL (32.4-35.8); MEAN CORPUSCULAR VOLUME 95.9 fL (80-100); MONOCYTES # (AUTO) 0.59 x10^3/uL (0.2-0.8); MONOCYTES % (AUTO) 12 % (2-9); NEUTROPHILS % (AUTO) 65 % (42-75); PLATELET COUNT 71 x10^3/uL (130-400); RED CELL DISTRIBUTION WIDTH 22.4 % (9.6-15.2)
[2017-07-27 20:45] LABS: ANISOCYTOSIS 1+; OVALOCYTES 1+; POLYCHROMASIA 1+
[2017-07-27 20:46] LABS: <PLATELET ESTIMATE> DECREASED; <PLT MORPHOLOGY> NORMAL PLT MORPH
[2017-07-27] MEDS ORDERED: HYDROmorphone 2 MG/ML, 1ML ONE ×2 (20:50→22:17)
[2017-07-27] MEDS ORDERED: NS + 40MEQ KCL 1,000 ML IV ONE ×2 (20:55→21:23)
[2017-07-27] MEDS ORDERED: ONDANSETRON 2MG/ML, 2ML IVPush ONE (21:00)
[2017-07-27] MEDS: HYDROmorphone 1 MG/ML, 1ML IVPush PRN ×2 (21:09→22:05)
[2017-07-27 22:37] VITALS: BP 102/47
[2017-07-27] MEDS ORDERED: BISACODYL 10 MG SUPP PR PRN (23:00)
[2017-07-27] MEDS ORDERED: ONDANSETRON 2MG/ML, 2ML IVPush PRN (23:00)
[2017-07-27] MEDS: SODIUM CHLORIDE FLUSH 10ML SYR IVF SCH (23:00)
[2017-07-28] MEDS: HYDROmorphone 2 MG/ML, 1ML IVPush PRN ×3 (01:01→05:54)
[2017-07-28] MEDS: PANTOPRAZOLE 80 MG in SODIUM CHLORIDE 0.9% 100 ML IV SCH ×2 (01:40→14:03)
[2017-07-28 02:00] VITALS: BP 99/63
[2017-07-28 06:18] LABS: ALBUMIN 1.7 g/dL (3.4-5.0); ANION GAP 7 mmol/L (5-15); CALCIUM 7.2 mg/dL (8.5-10.1); CHLORIDE 111 mmol/L (98-107)
[2017-07-28 06:21] LABS: ALANINE AMINOTRANSFERASE 16 U/L (12-78); ALKALINE PHOSPHATASE 142 U/L (45-117); BILIRUBIN,TOTAL 2.4 mg/dL (0.2-1.0); CREATININE 0.27 mg/dL (0.55-1.02); TOTAL PROTEIN 4.5 g/dL (6.4-8.2)
[2017-07-28 06:39] LABS: MEAN CORPUSCULAR HEMOGLOBIN 32.2 pg (27.0-34.8); MEAN CORPUSCULAR HGB CONC 33.5 g/dL (32.4-35.8); MEAN CORPUSCULAR VOLUME 96.1 fL (80-100); RED BLOOD COUNT 2.55 x10^6/uL (3.82-5.3); RED CELL DISTRIBUTION WIDTH 22.3 % (9.6-15.2)
[2017-07-28 07:15] LABS: MD YES; MEAN PLATELET VOLUME 9.3 fL (7.4-10.4); PLATELET COUNT 63 x10^3/uL (130-400)
[2017-07-28 07:34] LABS: <PLATELET ESTIMATE> DECREASED; <PLT MORPHOLOGY> NORMAL PLT MORPH; ANISOCYTOSIS 1+; BASOS#(MANUAL) 0.08 x10^3/uL (0-0.1); BASOS% (MANUAL) 2 % (0-1); EOS#(MANUAL) 0.08 x10^3/uL (0.0-0.4); EOS% (MANUAL) 2 % (1-7); LYMPH#(MANUAL) 2.26 x10^3/uL (1-3.4); LYMPHS% (MANUAL) 58 % (22-44); MONOS#(MANUAL) 0.08 x10^3/uL (0.3-2.7); MONOS% (MANUAL) 2 % (2-9); OVALOCYTES 1+; SEGS% (MANUAL) 36 % (42-75)
[2017-07-28 08:30] VITALS: BP 106/71
[2017-07-28] MEDS: SODIUM CHLORIDE FLUSH 10ML SYR IVF SCH ×2 (10:12→20:42)
[2017-07-28] MEDS ORDERED: OXYcodone IR 5MG TABLET PO PRN (12:30)
[2017-07-28 13:55] VITALS: BP 119/78
[2017-07-28] MEDS: OXYcodone IR 5MG TABLET PO PRN (14:03)
[2017-07-28] MEDS ORDERED: morphine SULFATE 10 MG/ML, 1ML IVPush ONE (17:00)
[2017-07-28 20:33] VITALS: BP 122/78
[2017-07-28] MEDS ORDERED: DIPHENHYDRAMINE 25 MG CAPSULE ONE (21:32)
[2017-07-28] MEDS: DIPHENHYDRAMINE 25 MG CAPSULE PO PRN ×2 (21:35→22:11)
[2017-07-29] MEDS: PANTOPRAZOLE 80 MG in SODIUM CHLORIDE 0.9% 100 ML IV SCH (01:03)
[2017-07-29 01:38] VITALS: BP 118/62
[2017-07-29 05:30] LABS: MEAN CORPUSCULAR HEMOGLOBIN 32.6 pg (27.0-34.8); MEAN CORPUSCULAR HGB CONC 34.1 g/dL (32.4-35.8); MEAN CORPUSCULAR VOLUME 95.6 fL (80-100); MEAN PLATELET VOLUME 9.4 fL (7.4-10.4); PLATELET COUNT 58 x10^3/uL (130-400); RED CELL DISTRIBUTION WIDTH 21.3 % (9.6-15.2)
[2017-07-29 05:36] LABS: ALBUMIN 1.8 g/dL (3.4-5.0); ANION GAP 6 mmol/L (5-15); CALCIUM 7.8 mg/dL (8.5-10.1); CHLORIDE 109 mmol/L (98-107)
[2017-07-29 05:39] LABS: ALANINE AMINOTRANSFERASE 17 U/L (12-78); ALKALINE PHOSPHATASE 148 U/L (45-117); BILIRUBIN,TOTAL 3.5 mg/dL (0.2-1.0); CREATININE 0.33 mg/dL (0.55-1.02); TOTAL PROTEIN 4.6 g/dL (6.4-8.2)
[2017-07-29 06:31] LABS: MD YES
[2017-07-29 06:34] LABS: LYMPH#(MANUAL) 1.22 x10^3/uL (1-3.4); LYMPHS% (MANUAL) 32 % (22-44)
[2017-07-29 06:35] LABS: EOS#(MANUAL) 0.11 x10^3/uL (0.0-0.4); EOS% (MANUAL) 3 % (1-7); MONOS#(MANUAL) 0.11 x10^3/uL (0.3-2.7); MONOS% (MANUAL) 3 % (2-9); SEG#(MANUAL) 2.36 x10^3/uL (1.8-6.8); SEGS% (MANUAL) 62 % (42-75)
[2017-07-29 06:36] LABS: ANISOCYTOSIS 1+; OVALOCYTES 1+
[2017-07-29 06:37] LABS: <PLATELET ESTIMATE> DECREASED; <PLT MORPHOLOGY> NORMAL PLT MORPH
[2017-07-29 08:01] VITALS: BP 118/66
[2017-07-29] MEDS: SODIUM CHLORIDE FLUSH 10ML SYR IVF SCH ×2 (09:00→21:00)
[2017-07-29] MEDS ORDERED: MAGNESIUM SULFATE PMX 2GM/50ML 50 ML IV ONE (15:30)
[2017-07-29] MEDS: SPIRONOLACTONE 50 MG TABLET PO SCH (16:29)
[2017-07-29] MEDS: OXYcodone IR 5MG TABLET PO PRN ×2 (16:50→21:06)
[2017-07-29 19:41] VITALS: BP 108/64
[2017-07-29] MEDS: DIPHENHYDRAMINE 25 MG CAPSULE PO PRN ×2 (19:55→20:45)
[2017-07-30] MEDS: OXYcodone IR 5MG TABLET PO PRN ×6 (01:09→21:10)
[2017-07-30 01:17] VITALS: BP 108/68
[2017-07-30 05:48] LABS: CHLORIDE 108 mmol/L (98-107)
[2017-07-30 06:01] LABS: ALANINE AMINOTRANSFERASE 17 U/L (12-78); ALBUMIN 1.8 g/dL (3.4-5.0); ALKALINE PHOSPHATASE 160 U/L (45-117); ANION GAP 8 mmol/L (5-15); BILIRUBIN,TOTAL 2.5 mg/dL (0.2-1.0); CALCIUM 7.4 mg/dL (8.5-10.1); CREATININE 0.49 mg/dL (0.55-1.02); MEAN CORPUSCULAR HEMOGLOBIN 31.9 pg (27.0-34.8); MEAN CORPUSCULAR HGB CONC 33.4 g/dL (32.4-35.8); MEAN CORPUSCULAR VOLUME 95.6 fL (80-100); RED BLOOD COUNT 2.69 x10^6/uL (3.82-5.3); RED CELL DISTRIBUTION WIDTH 21.1 % (9.6-15.2)
[2017-07-30 06:47] LABS: MD YES; MEAN PLATELET VOLUME 9.5 fL (7.4-10.4); PLATELET COUNT 70 x10^3/uL (130-400)
[2017-07-30 06:50] LABS: ANISOCYTOSIS 1+; BASOS#(MANUAL) 0.04 x10^3/uL (0-0.1); BASOS% (MANUAL) 1 % (0-1); EOS#(MANUAL) 0.16 x10^3/uL (0.0-0.4); EOS% (MANUAL) 4 % (1-7); LYMPHS% (MANUAL) 36 % (22-44); MONOS#(MANUAL) 0.16 x10^3/uL (0.3-2.7); MONOS% (MANUAL) 4 % (2-9); SCHISTOCYTES 1+; SEG#(MANUAL) 2.15 x10^3/uL (1.8-6.8); SEGS% (MANUAL) 55 % (42-75)
[2017-07-30 06:51] LABS: <PLATELET ESTIMATE> DECREASED; <PLT MORPHOLOGY> NORMAL PLT MORPH; OVALOCYTES 1+
[2017-07-30 07:16] VITALS: BP 102/68
[2017-07-30] MEDS: PANTOPROZOLE 40MG TABLET PO SCH (08:59)
[2017-07-30] MEDS: SPIRONOLACTONE 50 MG TABLET PO SCH (09:00)
[2017-07-30] MEDS: SODIUM CHLORIDE FLUSH 10ML SYR IVF SCH ×2 (09:01→21:00)
[2017-07-30] MEDS ORDERED: SODIUM CHLORIDE NASAL SPRAY 45ML BOTTLE NAS PRN (12:30)
[2017-07-30 13:53] VITALS: BP 117/72
[2017-07-30] MEDS ORDERED: LIDOCAINE 1%, 20ML ONE (13:58)
[2017-07-30 20:39] VITALS: BP 103/58
[2017-07-30] MEDS: DIPHENHYDRAMINE 25 MG CAPSULE PO PRN (21:10)
[2017-07-31] MEDS: OXYcodone IR 5MG TABLET PO PRN ×2 (01:10→07:59)
[2017-07-31 04:00] VITALS: BP 106/56
[2017-07-31 06:24] LABS: MEAN CORPUSCULAR HEMOGLOBIN 31.9 pg (27.0-34.8); MEAN CORPUSCULAR HGB CONC 33.5 g/dL (32.4-35.8); MEAN CORPUSCULAR VOLUME 95.2 fL (80-100); RED CELL DISTRIBUTION WIDTH 20.1 % (9.6-15.2)
[2017-07-31 06:25] LABS: ALBUMIN 1.6 g/dL (3.4-5.0); ANION GAP 7 mmol/L (5-15); CALCIUM 7.1 mg/dL (8.5-10.1); CHLORIDE 108 mmol/L (98-107)
[2017-07-31 06:29] LABS: ALANINE AMINOTRANSFERASE 15 U/L (12-78); ALKALINE PHOSPHATASE 155 U/L (45-117); BILIRUBIN,TOTAL 2.4 mg/dL (0.2-1.0); CREATININE 0.45 mg/dL (0.55-1.02); TOTAL PROTEIN 4.5 g/dL (6.4-8.2)
[2017-07-31 07:01] LABS: BASOPHILS # (AUTO) 0.01 x10^3/uL (0-0.1); BASOPHILS % (AUTO) 0 % (0-1); EOSINOPHILS # (AUTO) 0.07 x10^3/uL (0-0.4); EOSINOPHILS % (AUTO) 2 % (1-7); LYMPHOCYTES # (AUTO) 1.19 x10^3/uL (1-3.4); LYMPHOCYTES % (AUTO) 34 % (22-44); MD MORPH REVIEW ONLY; MEAN PLATELET VOLUME 9.4 fL (7.4-10.4); MONOCYTES # (AUTO) 0.28 x10^3/uL (0.2-0.8); MONOCYTES % (AUTO) 8 % (2-9); NEUTROPHILS # (AUTO) 1.94 x10^3/uL (1.8-6.8); NEUTROPHILS % (AUTO) 56 % (42-75); PLATELET COUNT 60 x10^3/uL (130-400)
[2017-07-31 07:02] LABS: ANISOCYTOSIS 1+; CRENATED 1+; OVALOCYTES 1+; SCHISTOCYTES 1+
[2017-07-31 07:03] LABS: <PLATELET ESTIMATE> DECREASED; <PLT MORPHOLOGY> NORMAL PLT MORPH; POLYCHROMASIA 1+; TARGET CELLS 1+
[2017-07-31 07:45] VITALS: BP 99/61
[2017-07-31] MEDS: PANTOPROZOLE 40MG TABLET PO SCH (07:59)
[2017-07-31] MEDS: SODIUM CHLORIDE FLUSH 10ML SYR IVF SCH (07:59)
[2017-07-31] MEDS: SPIRONOLACTONE 50 MG TABLET PO SCH (07:59)
[2017-07-31] MEDS ORDERED: PANT40TA5 PO (10:37)
[2017-07-31] MEDS ORDERED: OXYC5TAB3 PO ×2 (10:37→10:43)
[2017-07-31] MEDS ORDERED: SPIR50TA PO (10:37)
== END 2017-07-31 11:49 | disposition home or self-care (01) | DRG 432 ==
LOC: ED 21:29 → EDIP 21:35 → 3NE 22:26 → DCLOUNGE 07-31 11:38
PROVIDERS: ADMIT Hospitalist; ATTEND Hospitalist
PROC: 0W9G3ZZ Drainage of Peritoneal Cavity, Percutaneous Approach (ICD-10-PCS; principal; 2017-07-30)
DX: K70.11 Alcoholic hepatitis with ascites (principal); E43 Unspecified severe protein-calorie malnutrition; K92.0 Hematemesis; D69.6 Thrombocytopenia, unspecified; D68.4 Acquired coagulation factor deficiency; K72.90 Hepatic failure, unspecified without coma; E83.42 Hypomagnesemia; E87.1 Hypo-osmolality and hyponatremia; N18.6 End stage renal disease; D63.8 Anemia in other chronic diseases classified elsewhere; F12.90 Cannabis use, unspecified, uncomplicated; F17.210 Nicotine dependence, cigarettes, uncomplicated; J45.909 Unspecified asthma, uncomplicated; K74.60 Unspecified cirrhosis of liver; R04.0 Epistaxis; Z82.5 Family history of asthma and other chronic lower respiratory diseases; Z68.20 Body mass index [BMI] 20.0-20.9, adult
CPT/HCPCS: 36415; 49083; 76700; 76705; 78226; 80053; 83690; 83735; 85014; 85018; 85025; 85610; 85730; 96365; 96366; 96375; 96376; J1170; J2405; J3490; A9537; C9113; C9898; J2270; J3475; J3480; J7030; Q0163